=== PATIENT | female | born 1950 | race African-American/Black ===

== ENCOUNTER 2021-02-01 12:27 | Inpatient (IN) | payer OTHER ==
[~2021-02-01] VITALS: Ht 149.9 cm; Wt 99.8 kg
--- NOTE | ~2021-02-01 | EMS ---
[address] [address] EMS Patient Care Report Name: SEAN ALBA Room #: 170-13 ADM IN M.R.#: [id number] Admission: 02/01/21 Attend Phys: Romaine Winter MD Discharge: Date of : 46 Report #: [id number] THIS REPORT FOR: //name// Report Transmitted: 02/01/2021 18:22 EMS Care Summary [place], [place]/[facility] Incident [id number] @ 02/01/2021 11:55 Incident Location [address] [place], [place] [id number] Patient SEAN ALBA Female, 70 Years 1950 Patient Address [address] [id number] Patient History Asthma,Diabetes,Hypertension (HTN),Kidney/Renal Failure,Stroke/CVA,Hyperlipidemia,Chronic Pain, Patient Allergies Penicillin allergy,Sulfa,Azithromycin, Patient Medications Lasix, Hydrocodone, Clonidine, Albuterol, Bentyl, Aspirin, Cymbalta, Insulin, Omeprazole, Coreg, Gabapentin, Fentanyl, Buspar, Xanax, Rosuvastatin, Chief Complaint hyperglycemia Disposition Transported No Lights/[place] Dispatch Reason Sick Person Transported To [address] [address] EMS Patient Care Report Name: SEAN ALBA Room #: 170-13 ADM [facility] [id number] Admission: 02/01/21 Attend Phys: Romanie Winter MD Discharge: Date of : 46 Report #: [id number] pt found seated in chair w/ home health nurse on scene. pt reported to have high BGL readings for the past 2 days. they have had difficulty getting her level to read under 500. home health gave pt 5 units extra of insulin, waited an hour and when reading was still around 500, said he wanted pt to be eval in ER. pt states she only feels "sleepy and thirsty". pt sits in stair chair and out to cot, transport w/o incident. Initial Vitals @12:05P: 81,R: 18,BP: 136/49,Pain: 6/10,GCS: 15,Glucose: 495,CO: 2,SpO2: 97,Revised Trauma: 12, Assessments @12:00MENTAL:No Abnormalities,SKIN:No Abnormalities,HEENT:Head/Face: No Abnormalities,LUNG SOUNDS:ABDOMEN:PELVIS//GI:EXTREMITIES:PULSE:Radial: 2+ Normal,NEURO:Other, Impression Diabetic Hyperglycemia Procedures @12:00ALS AssessmentResponse: Unchanged@12:05StretcherResponse: Unchanged@12:03StairchairResponse: Unchanged Timeline 11:53,Call Received 11:53,Dispatch Notified 11:55,Dispatched 11:55,En Route 11:58,On Scene 11:59,At Patient 12:00,ALS Assessment,Response: Unchanged 12:03,Stairchair,Response: Unchanged 12:05,Stretcher,Response: Unchanged 12:05,BP: 136/49 M,PULSE: 81,RR: 18 R,SPO2: 97 Ox,ETCO2: ,B,PAIN: 6,GCS: 15, 12:07,Depart Scene 12:21,At Destination 12:39,Call Closed Disclaimer v1.1 Copyright 2020 [employer] This EMS Care Summary contains data elements from the applicable legal record (which may be displayed differently). It is designed to provide pertinent information for the following purposes: continuity of care, clinical quality, and state data reporting. The complete legal record is available to ED staff and administrators of the receiving hospital in [employer]'s Patient Tracker. All data [address] [address] EMS Patient Care Report Name: PARTHSEAN Christina Room #: 170-13 ADM IN ..#: [id number] Admission: 02/01/21 Attend Phys: Romaine Winter MD Discharge: Date of : 46 Report #: [id number] is provided "as is."
[2021-02-01 12:29] VITALS: BP 122/53
[2021-02-01 13:51] LABS: HEMATOCRIT 36.1 % (37.0-47.0); HEMOGLOBIN 11.4 gm/dL (12.0-15.0); MCH 25.3 pg (26.0-34.0); MCHC 31.5 g/dL (28.0-37.0); MCV 80.4 fL (80.0-100.0); RBC 4.49 mil/uL (4.20-5.00); RDW 16.5 % (10.5-14.5)
[2021-02-01 14:07] LABS: CALCIUM 8.3 mg/dL (8.5-10.1); CREATININE 0.9 mg/dL (0.6-1.0); POTASSIUM 4.2 mmol/L (3.5-5.1)
[2021-02-01 14:15] LABS: ALBUMIN 2.9 g/dL (3.4-5.0); TOTAL BILIRUBIN 0.3 mg/dL (0.2-1.0); TOTAL PROTEIN 6.5 g/dL (6.4-8.2)
[2021-02-01 18:01] LABS: URINE BILIRUBIN NEGATIVE (Negative); URINE BLOOD NEGATIVE (Negative); URINE CLARITY CLEAR; URINE COLOR YELLOW; URINE GLUCOSE-RANDOM* NEGATIVE (Negative); URINE KETONES NEGATIVE (Negative); URINE LEUKOCYTES-REFLEX NEGATIVE (Negative); URINE NITRITE-REFLEX NEGATIVE (Negative); URINE PROTEIN (DIPSTICK) NEGATIVE (Negative); URINE SPECIFIC GRAVITY <= 1.005 (1.005-1.035); URINE UROBILINOGEN 0.2 E.U./dl (0.2-1.0)
[2021-02-01] MEDS ORDERED: ARICEPT10 M1 PO (19:32)
[2021-02-01] MEDS ORDERED: DESYREL150 MG PO (19:33)
[2021-02-01] MEDS ORDERED: OXYCODONE HCL E10 MG PO (19:33)
[2021-02-01] MEDS ORDERED: TIZANIDINE HCL2 M1 PO (19:34)
[2021-02-01] MEDS ORDERED: HUMALOG100 UNIT/1 SUBQ (19:35)
[2021-02-01] MEDS ORDERED: SEROQUEL 50 MG50 M1 PO (19:35)
[2021-02-01] MEDS ORDERED: CARVEDILOL25 MG PO (19:36)
[2021-02-01] MEDS ORDERED: NORCO5 PO (19:36)
[2021-02-01] MEDS ORDERED: BENTYL10 MG/1 ML IM (19:36)
[2021-02-01] MEDS ORDERED: CLONIDINE HCL0.1 M1 PO (19:37)
[2021-02-01] MEDS ORDERED: FUROSEMIDE 20 M20 MG PO (19:37)
[2021-02-01] MEDS ORDERED: DULOXETINE HCL60 MG PO (19:37)
[2021-02-01] MEDS ORDERED: BUSPIRONE HCL10 MG PO (19:37)
[2021-02-01] MEDS ORDERED: POTASSIUM20 PO (19:38)
[2021-02-01] MEDS ORDERED: LISINOPRIL10 MG PO (19:39)
[2021-02-01] MEDS ORDERED: NEURONTIN300 MG PO (19:39)
[2021-02-01] MEDS ORDERED: OMEPRAZOLE40 MG PO (19:39)
[2021-02-01] MEDS ORDERED: EZALLOR SPRINKL10 MG PO (19:40)
[2021-02-01] MEDS ORDERED: ALPRAZOLAM 0.0.25 M1 PO (19:40)
[2021-02-01] MEDS ORDERED: [UNRECOGNIZED DRUG - OTHER] PO (19:42)
[2021-02-01] MEDS ORDERED: FOSAMAX 70 MG T70 MG PO (19:42)
[2021-02-01] MEDS ORDERED: PLAVIX 75 MG TA75 MG PO (19:42)
[2021-02-01] MEDS ORDERED: LISINOPRIL20 MG PO (19:43)
[2021-02-01] MEDS ORDERED: VITAMIN D210 MCG PO (19:43)
[2021-02-01 20:30] VITALS: BP 159/73
--- NOTE | 2021-02-02 02:32 | NUR ---
PT ADMITTED TO THE UNIT FROM THE ER YESTERDAY WITH C/O HIGH BLOOD SUGAR.PT IS A/O X4.PT IS FROM HOME AND HAS HOMEHEALTH SERVICES.PT IS UP WITH X1 ASSIST TO THE BSC.IV ACCESS ON LT FA SL.PT IS ON ROOM AIR.PT C/O BACK PAIN AND PAIN MANAGED WITH TYLENOL WITH RELIEF.PT IS ACCUCHECK.PT TAKE MEDS WHOLE WITH NO ISSUES.WILL CONTINUE TO MONITOR
[2021-02-02 03:34] LABS: ABSOLUTE NEUTROPHILS 3.5 thou/uL (1.4-8.2); BASOPHILS 0.4 % (0.0-2.0); HEMATOCRIT 35.5 % (37.0-47.0); HEMOGLOBIN 11.6 gm/dL (12.0-15.0); LYMPHOCYTES 21.5 % (24.0-44.0); MCH 25.9 pg (26.0-34.0); MCHC 32.7 g/dL (28.0-37.0); MCV 79.2 fL (80.0-100.0); MONOCYTES 7.6 % (1.0-8.0); PLATELET COUNT 332 thou/uL (150-400); POLYS 67.5 % (36.0-66.0); RBC 4.49 mil/uL (4.20-5.00); RDW 15.9 % (10.5-14.5); WBC 5.1 thou/uL (4.0-11.0)
[2021-02-02 03:54] LABS: CALCIUM 8.2 mg/dL (8.5-10.1); CREATININE 0.7 mg/dL (0.6-1.0); MAGNESIUM 1.9 mg/dL (1.8-2.4)
[2021-02-02 04:42] VITALS: BP 178/87
[2021-02-02 07:04] VITALS: BP 190/105
[2021-02-02 08:45] LABS: ALBUMIN 2.9 g/dL (3.4-5.0); DIRECT BILIRUBIN 0.2 mg/dL (<0.1-0.2); TOTAL BILIRUBIN 0.5 mg/dL (0.2-1.0); TOTAL PROTEIN 6.2 g/dL (6.4-8.2)
[2021-02-02 11:58] LABS: % SATURATION 53 % (20-39); IRON 143 ug/dL (50-170); TIBC 269 ug/dL (250-450)
--- NOTE | 2021-02-02 13:30 | NUR ---
ASSESSMENT: CM REVIEWED CHART AND SPOKE WITH PATIENT AT THE BEDSIDE. PT WAS ADMITTED DUE TO ELEVATED LFTS/POSSIBLE UTI. GI HAS BEEN CONSULTED TO SEE PATIENT. PT REPORTS THAT SHE LIVES AT HOME WITH HER DAUGHTER JOCELYN IN AN APT. PT REPORTS HAVING ABOUT 7 STEPS TO ENTER THE APT AND NOT STEPS ONCE INSIDE. PT REPORTS THAT SHE USES A CANE AND ALSO HAS A WALKER FOR AMBULATION. PT STATES SHE IS IN THE PROCESS OF GETTING A GRAB BAR INSTALLED IN THE SHOWER. PT DOES HAVE A PAST HX OF CVA X2. PT REPORTS THAT SHE IS CURRENTLY IN SERVICES WITH [facility] AND IS HOPEFUL TO RETURN HOME WITH THEIR SERVICES. CM SPOKE WITH RICHARD AT [facility] TO VERIFY AND SHE REPORTS THEY HAVE THE PT ADMITTED UNDER PRIMARY DIAGNOSIS OF ALZHEIMERS. PT REPORTS SHE HAS BEEN TO [place] IN THE PAST. PT IS CURRENTLY ON IV ANBX. CM WILL CONTINUE TO FOLLOW TO ASSIST NEEDED. [facility] STATING THEY CAN ACCEPT HER BACK ONTO SERVICES AT THE TIME OF DISCHARGE. [facility] :[phone] FAX:[phone]. IF PT IS STABLE TO LEAVE OVER THE WEEKEND PLEASE FAX ORDERS TO THE NUMBER LISTED ABOVE FOR [facility] FAX.
[2021-02-02 15:35] VITALS: BP 185/100
[2021-02-02 19:15] VITALS: BP 162/89
[2021-02-02 20:07] LABS: IgG 717 mg/dL (586-1602)
[2021-02-03 02:06] LABS: HAV IgM AB (ANTI-HAV IgM) Negative (Negative); HEPATITIS B SURFACE AG Negative (Negative); HEPATITIS C VIRUS AB <0.1 (0.0-0.9)
[2021-02-03 03:40] VITALS: BP 171/79
--- NOTE | 2021-02-03 05:33 | NUR ---
PT STATES SHE HAVING PAIN. RESTARTED HOME [place]. AM VITALS SHOW PT HAS FEVER. TYLENOL GIVEN. VSS OTHERWISE. PT CAN USE CALL LIGHT.
[2021-02-03 05:37] LABS: ALBUMIN 3.2 g/dL (3.4-5.0); CALCIUM 8.2 mg/dL (8.5-10.1); CREATININE 0.7 mg/dL (0.6-1.0); POTASSIUM 3.7 mmol/L (3.5-5.1); TOTAL BILIRUBIN 0.3 mg/dL (0.2-1.0); TOTAL PROTEIN 6.9 g/dL (6.4-8.2)
[2021-02-03 07:15] VITALS: BP 162/91
--- NOTE | 2021-02-03 13:46 | NUR ---
ASSUMED PT CARE THIS AM. PT HAS BEEN SLEEPING DURING THE SHIFT. PT HAS IV SITE ON R FA. PT IS ON ROOM AIR AND HAS BREATHING TREATMENT PRN. PT IS ACCUCHECK ACHS. PT NO C/O PAIN, NAUSEA AND VOMITING DURING THE SHIFT. PT DAUGHTER CALLED AND INFORMED HER ABOUT VISITING HOURS TODAY. PT TOLERATED MEDICATION AND DIET WELL. PT ON THE BED SLEEPING, BED ON THE LOWEST POSITION, SIDE RAILS UP, CALL LIGHT WITHIN REACH. WILL CONTINUE TO MONITOR PT. FOLLOW POC.
[2021-02-03 15:07] LABS: CERULOPLASMIN 23.7 mg/dL (19.0-39.0)
[2021-02-03 16:20] VITALS: BP 160/82
[2021-02-03 17:07] LABS: ANA INTERPRETATION Negative (Negative)
[2021-02-03 21:12] VITALS: BP 168/83
--- NOTE | 2021-02-04 03:44 | NUR ---
PT TRANSFERRING TO BEDSIDE COMMODE WITH ASSIST AND IS TOLERATING FAIR. DENIES PAIN. RESTING COMFORTABLY. NO NEEDS VOICED. CALL LIGHT WITHIN REACH. FREQUENT OBSERVATION.
[2021-02-04 07:50] VITALS: BP 156/85
[2021-02-04 10:54] LABS: HEMATOCRIT 33.5 % (37.0-47.0); HEMOGLOBIN 10.8 gm/dL (12.0-15.0); MCH 25.3 pg (26.0-34.0); MCHC 32.2 g/dL (28.0-37.0); MCV 78.7 fL (80.0-100.0); PLATELET COUNT 283 thou/uL (150-400); RBC 4.25 mil/uL (4.20-5.00); RDW 16.5 % (10.5-14.5); WBC 2.2 thou/uL (4.0-11.0)
[2021-02-04 11:12] LABS: ALBUMIN 2.6 g/dL (3.4-5.0); ANION GAP 7 mmol/L (7-16); BUN 6 mg/dL (7-18); CALCIUM 7.7 mg/dL (8.5-10.1); CHLORIDE 101 mmol/L (98-107); CO2 28 mmol/L (21-32); DIRECT BILIRUBIN < 0.1 mg/dL (<0.1-0.2); GLUCOSE 319 mg/dL (74-106); MAGNESIUM 1.8 mg/dL (1.8-2.4); PHOSPHORUS 2.9 mg/dL (2.6-4.7); POTASSIUM 3.4 mmol/L (3.5-5.1); SGOT 61 U/L (15-37); SGPT 159 U/L (14-59); SODIUM 136 mmol/L (136-145); TOTAL BILIRUBIN 0.2 mg/dL (0.2-1.0); TOTAL PROTEIN 5.8 g/dL (6.4-8.2)
[2021-02-04 12:49] LABS: ABSOLUTE NEUTROPHILS 1.6 thou/uL (1.4-8.2)
[2021-02-04 12:50] LABS: ANISOCYTOSIS 1+
--- NOTE | 2021-02-04 13:58 | NUR ---
ASSUMED PT CARE THIS AM. PT HAS IV SITE ON R FA. PT IS UP WITH ASSIST X1 WITH WALKER AND GAITBELT. PT IS ON ROOM AIR. PT IS ACCUCHECH ACHS. PT HAS FEVER THIS AM AND GIVEN MEDICATION AND COOL WASH CLOTH. RECHECK TEMP AND NOW AFEBRILE. INFORMED DR ABOUT PT LOW K+. NO C/O OF NAUSEA AND VOMITING DURING THE SHIFT. PT ON THE CHAIR WITH ALARM ON. CALL LIGHT WITHIN REACH. WILL CONTINUE TO MONITOR PT. FOLLOW POC.
[2021-02-04 14:07] LABS: MITOCHONDRIAL ANTIBODY <20.0 Units (0.0-20.0); SMOOTH MUSCLE ANTIBODY 4 Units (0-19)
[2021-02-04 15:08] VITALS: BP 155/135
[2021-02-04 18:53] VITALS: BP 136/75
--- NOTE | 2021-02-05 03:12 | NUR ---
PT TRANSFERRING TO BEDSIDE COMMODE WITH ASSIST X1 AND IS TOLERATING FAIR. DENIES PAIN. RESTING COMFORTABLY. NO NEEDS VOICED. CALL LIGHT WITHIN REACH. FREQUENT OBSERVATION.
[2021-02-05 07:30] VITALS: BP 137/73
--- NOTE | 2021-02-05 11:10 | NUR ---
PATIENT ALERT AND ORINTED X2, ON ROOM AIR, UP WITH ASSIST X1-2 WITH WALKER AND GAIT BELT, TOLERATING DIET WELL, PAIN MEDICATION GIVEN PER MAR, VITALS STABLE, AND AFBRIELE. CALL LIGHT WITH IN REACH, BED/CHAIR ALARM ON, WILL CONTINUE TO MONITOR.
--- NOTE | 2021-02-05 12:28 | NUR ---
LIGHT TECHNICIAN CALLED FOR PT AT 1204 FOR UNRESPONSIVE. PT GIVEN NARCAN PER DR TAYLOR ORDER AT BEDSIDE. PT AROUSEABLE AT THIS TIME. MOVED TO 3 FOR TELE MONITORING.
--- NOTE | 2021-02-05 12:50 | NUR ---
on-going assessment: CM REVIEWED CHART AND SPOKE WITH ATTENDING. PT CONTINUES TO HAVE PERSISTENT FEVERS. ANBX WAS CHANGED. ID WAS CONSULTED TO SEE PATIENT AND THERE IS ALSO A CONSULT FOR UROLOGY FOR POSSIBLE NEED OF CYSTOSCOPY. AWAITING INPUT FROM UROLOGY. PT LIVES AT HOME WITH HER DAUGHTER AND PLANS WERE TO RETURN HOME WITH DAUGHTER AND RESUME SERVICES WITH [facility] ONCE STABLE. CM WILL CONTINUE TO FOLLOW.
--- NOTE | 2021-02-05 13:06 | NUR ---
AID IN ROOM TO POC, PATIENT NOT RESPONSIVE VERBALLY OR STERNAL RUB, RN HEARD AID RN IN ROOM AT 1205, RAPID RESPONSE DONE AT THAT TIME, VITAL SIGNS DONE AND O2 AT 70% ON ROOM AIR, BLOOD PRESSURE 83/38, NARCAN GIVEN PER DR ORDERS, PATIENT ON 2L NASAL CANULA, REPORT GIVEN TO EMILY RN IN CCU, GOING TO ROOM 363, DAUGHTER WILL BE NOTIFIED AGAIN BY RN WHEN PATIENT MOVES TO CCU.
--- NOTE | 2021-02-05 14:53 | EKG ---
[address] [address] ELECTROCARDIOGRAM REPORT Name: YOVANA ALBACLARICE Vasquez Room #: 363-P ADM IN M.R.#: [id number] Admission: 02/01/21 Attend Phys: Romaine Winter MD Discharge: Date of : 46 Report #: [id number] [facility] Test Date: 2021-02-05 Test Time: 12:19:16 Pat Name: SEAN ALBA Department: Room: 363 Gender: F Legal Process Specialist: JEREMIAH : 1950 Requested By: Romaine Winter Order Number: [id number] : Sj Lala Measurements Intervals [place] Rate: 79 P: 39 [place]: 141 QRS: -32 QRSD: 83 T: 34 QT: 396 QTc: 455 Interpretive Statements Sinus rhythm Inferior infarct, old Compared to ECG 11/11/2008 20:48:47 Myocardial infarct finding now present Electronically Signed On 02-05-2021 14:53:32 CDT by Sj Lala [email or web address] <ELECTRONICALLY SIGNED> By: Sj Lala MD, [facility] 02/05/21 1453 1219 1219 Sj Lala MD, FACC /EPI
[2021-02-05 15:11] VITALS: BP 134/99; BP 141/72
[2021-02-05 18:34] LABS: URINE BILIRUBIN NEGATIVE (Negative); URINE BLOOD TRACE (Negative); URINE CLARITY CLEAR; URINE COLOR YELLOW; URINE GLUCOSE-RANDOM* 1+ (Negative); URINE KETONES NEGATIVE (Negative); URINE LEUKOCYTES-REFLEX NEGATIVE (Negative); URINE PROTEIN (DIPSTICK) TRACE (Negative); URINE UROBILINOGEN 0.2 E.U./dl (0.2-1.0)
[2021-02-05 18:39] LABS: URINE NITRITE-REFLEX POSITIVE (Negative)
[2021-02-05 18:45] LABS: SQUAMOUS 0-3 Few /LPF (0-3); URINE WBC-REFLEX 0-5 Rare /HPF (0-5)
[2021-02-05 18:47] LABS: BACTERIA-REFLEX >30 Many /HPF (None Seen); CASTS None Seen /LPF (None Seen); CRYSTALS None Seen /LPF (None Seen); URINE RBC 1-2 Rare /HPF (NONE SEEN)
--- NOTE | 2021-02-05 19:48 | NUR ---
PT WAS TRANSFERED FROM TODAY AT 1500PM, PT IS A&OX3 ( PERSON, TIME AND PLACE), PT'S VS ARE STABLE, PT CAN FOLLOW COMMANDS, PT'S FAMILY STAY AT PT'S BEDSIDE.
[2021-02-05 19:50] VITALS: BP 143/74
--- NOTE | 2021-02-05 22:44 | NUR ---
PT RESTING IN BED, TALKING WITH FAMILY ON PHONE. O2 PER NC. LUNGS DIMINISHED. PT PROVIDED SNACK PER REQUEST. PURWICK INTACT. PT REPORTED GENERALIZED PAIN, PROVIDER CALLED FOR PRN BUT PT ASLEEP ONCE ORDER OBTAINED. PROVIDER NOTIFIED MRSA POSITIVE. BED ALARM ON.
[2021-02-06 02:58] VITALS: BP 131/61
--- NOTE | 2021-02-06 04:15 | NUR ---
TEMP ELEVATED. PT HAD ON SEVERAL BLANKETS. BLANKETS REMOVED PRN PROVIDED.
[2021-02-06 06:15] LABS: ALBUMIN 2.3 g/dL (3.4-5.0); DIRECT BILIRUBIN < 0.1 mg/dL (<0.1-0.2); SGOT 36 U/L (15-37); SGPT 93 U/L (30-65); TOTAL BILIRUBIN 0.1 mg/dL (0.2-1.0); TOTAL PROTEIN 5.8 g/dL (6.4-8.2)
[2021-02-06 07:47] VITALS: BP 145/73
--- NOTE | 2021-02-06 08:11 | HC ---
[facility] [place] [address] CONSULTATION Name: SEAN ALBA Room #: 363-P [facility] IN M.R.#: [id number] Admission: 02/01/21 Attend Phys: Romaine Winter MD Discharge: Date of : 46 Report #: [id number] THIS REPORT FOR: cc: FAM - No family physician/PCP FAM - No family physician/PCP Walter Viera MD ~ DATE OF SERVICE: 02/05/2021 INFECTIOUS DISEASE CONSULTATION DATE OF CONSULTATION: 02/05/2021 ATTENDING PHYSICIAN: Dr. Winter. REASON FOR EVALUATION: Persistent fevers with abdominal pain. HISTORY OF PRESENT ILLNESS: The patient was examined. This is a 70-year-old woman with extensive medical history including diabetes mellitus type 2 that has not been well controlled with marked hyperglycemia on admission, also has known vasculopathy with previous strokes, who was actually discharged from other facility, presented with fatigue, was found to have markedly elevated blood sugars in the 350 range. Also, elevated transhepatic transaminases in several hundreds that was corrected, however, she has intermittent fevers, some of which have been high-grade as recently as yesterday to 102.2. She is not aware of a particular source, although imaging has raised a question of some thickened bladder wall. Initial urinalysis was fairly unremarkable. She was empirically started on therapy with ciprofloxacin and metronidazole for potential enteral type infection. Aztreonam was added to the Cipro. She is sitting up. It is difficult to ascertain some of the details of her history. She does have ongoing pain, which she describes as left lower quadrant, intermittently has some dyspnea it has been somewhat diminished. Imaging thus far including CT as well as abdominal ultrasound has been fairly unrevealing. ALLERGIES: LISTED TO PENICILLIN, SULFA, AZITHROMYCIN. CURRENT MEDICATIONS: Include gabapentin, aztreonam, insulin glargine, lisinopril, cyclobenzaprine, trazodone, dicyclomine, clopidogrel, quetiapine, pantoprazole, carvedilol, insulin lispro, Cipro and enoxaparin. PAST MEDICAL HISTORY: As described above diabetes mellitus, apparently not well controlled, was complicated by vasculopathy, has previous stroke. History of PE, hyperlipidemia, hypertension, anxiety and has diagnosis of dementia and chronic back pain. SOCIAL HISTORY: Nonsmoker. Occasional ethanol in the past. No illicit drug use. [address] [address] CONSULTATION Name: SEAN ALBA Room #: 363-P [facility] IN .#: [id number] Admission: 02/01/21 Attend Phys: Romaine Winter MD Discharge: Date of : 46 Report #: [id number] FAMILY HISTORY: Noncontributory. REVIEW OF SYSTEMS: Otherwise, unremarkable. PHYSICAL EXAMINATION: GENERAL: She appears chronically ill, undernourished. She is soft spoken. She is in mild to moderate distress. She appears to be mildly encephalopathic. VITAL SIGNS: Temperature 99.3, earlier 100.6 over the evening yesterday, 24 hours ago 102.2. Pulse 111, respirations 20, blood pressure 137/73. SKIN: Warm, dry. No rashes. HEENT: Normocephalic. Extraocular muscles intact. NECK: Supple. LUNGS: Diminished breath sounds. Few crackles. HEART: Regular. I do not appreciate a murmur. ABDOMEN: Soft, distended, nontender. GENITOURINARY AND RECTAL: Deferred. LABORATORY DATA: Recent CBC: White count of 2.2, H and H 10.8 and 33.5, platelets of 283. She has lymphocytopenia. Electrolytes: Sodium 136, potassium 3.4, chloride 101, bicarbonate 20, anion gap of 7, BUN and creatinine 6 and 1.0, glucose of 319 fasting. LFTs improved. AST now 61, down from 934; ALT 159, down from high of 468. Albumin of 2.6. Total protein 5.8. Estimated GFR of 66. Ultrasound of the abdomen; nothing acute, postsurgical changes of cholecystectomy, mild hepatic steatohepatitis. Hepatitis serology was otherwise unremarkable. Sed rate of 22. Ferritin of 39. ASSESSMENT AND PLAN: Febrile illness of uncertain etiology associated initially with elevated LFTs, which have continued to improve. Her left lower quadrant pain certainly raises question of acute diverticulitis. At this point, she is not overtly toxic. It sounds entirely clear to me, but it appears as if I had believed blood cultures were collected find those. Continue empiric therapy. We will check additional testing for possible infectious causes, although may well be not the case that incentive spirometry. Continue to monitor usual sources of potential infection including lungs, urinary tract, etc. <ELECTRONICALLY SIGNED> By: Walter Viera MD 02/06/21 0811 1006 [id number] Walter Viera MD /nt
[2021-02-06] MEDS ORDERED: FLAGYL500 M1 PO (10:31)
[2021-02-06] MEDS ORDERED: CIPRO500 M1 PO (10:31)
[2021-02-06 12:32] VITALS: BP 145/73
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
[2021-02-06 15:34] VITALS: BP 120/62
[2021-02-06 17:29] VITALS: BP 120/46
--- NOTE | 2021-02-06 18:43 | NUR ---
RN ASSUMED PT'S CARE AT 0700AM, PT IS A&OX3 ( PERSON , PLACE AND TIME), PT CAN GET UP TO BSC WITH ASSIST, RN HAS CALLED TO REPORT : PT HAS FEVER 102.2F(O), NEW ORDER RECEIVED, COVID TEST IS POSITIVE, RN HAS CALLED HOSPITAL DR : NO DC TODAY, ID DR STARTS TO TREAT COVID, PT'S FEVER HAS IMPROVED BY THIS TIME, PT STARTS COVID ISOLATION, PT'S FAMILY HAS NOTIFIED ABOUT POSITIVE COVID.
[2021-02-06 21:43] VITALS: BP 129/65
[2021-02-07 03:56] VITALS: BP 126/67
--- NOTE | 2021-02-07 06:14 | NUR ---
Pt. oriented to person,place and to some situation. She is forgetful , reoriented.Tolerating room air well with no respiratory distress. Cont. on enhanced precaution , afebrile. Ambulated with assist to bathroom using walker and gaitbelt. External cath in place.
[2021-02-07 06:58] LABS: ABSOLUTE NEUTROPHILS 1.1 thou/uL (1.4-8.2); RDW 16.5 % (10.5-14.5)
[2021-02-07 07:00] LABS: BASOPHILS 0.3 % (0.0-2.0); HEMATOCRIT 35.5 % (37.0-47.0); HEMOGLOBIN 11.6 gm/dL (12.0-15.0); MCH 25.6 pg (26.0-34.0); MCHC 32.6 g/dL (28.0-37.0); MCV 78.6 fL (80.0-100.0); MONOCYTES 8.5 % (1.0-8.0); PLATELET COUNT 225 thou/uL (150-400); POLYS 63.2 % (36.0-66.0); RBC 4.52 mil/uL (4.20-5.00)
[2021-02-07 07:17] LABS: WBC 1.8 thou/uL (4.0-11.0)
[2021-02-07 07:25] LABS: ALBUMIN 2.4 g/dL (3.4-5.0); ANION GAP 8 mmol/L (7-16); BUN 11 mg/dL (7-18); CHLORIDE 104 mmol/L (98-107); CO2 27 mmol/L (21-32); CREATININE 0.8 mg/dL (0.6-1.0); DIRECT BILIRUBIN < 0.1 mg/dL (<0.1-0.2); GLUCOSE 359 mg/dL (74-106); PHOSPHORUS 4.3 mg/dL (2.6-4.7); POTASSIUM 4.2 mmol/L (3.5-5.1); SGOT 29 U/L (15-37); SGPT 75 U/L (14-59); SODIUM 139 mmol/L (136-145); TOTAL BILIRUBIN 0.1 mg/dL (0.2-1.0)
[2021-02-07 07:49] VITALS: BP 144/59
--- NOTE | 2021-02-07 15:20 | NUR ---
BERNARDINO reviewed chart and spoke with nursing and attending physician. Pt was placed in Enhanced Isolation yesterday after having positive COVID test. Pt is afebrile today and on 1L of O2. Pt is on IV steroids and IV lasix. Pt has been started on Remdesivir. BERNARDINO contacted [facility] to provide update and notify of pt's positive COVID test. Gera confirms they are able to accept pt on service when she is discharged. BERNARDINO spoke with pt via phone to discuss discharge plan. Pt is aware and agreeable with plan. BERNARDINO is following to assist as needed with discharge planning.
[2021-02-07 15:44] VITALS: BP 151/60
[2021-02-07 20:25] VITALS: BP 107/48
[2021-02-08 02:30] LABS: HEMOGLOBIN 10.8 gm/dL (12.0-15.0)
[2021-02-08 02:35] LABS: HEMATOCRIT 32.6 % (37.0-47.0); MCH 25.9 pg (26.0-34.0); MCHC 33.2 g/dL (28.0-37.0); MCV 77.9 fL (80.0-100.0); RBC 4.19 mil/uL (4.20-5.00); RDW 16.2 % (10.5-14.5)
[2021-02-08 02:47] LABS: WBC 1.6 thou/uL (4.0-11.0)
[2021-02-08 02:52] LABS: ALBUMIN 2.3 g/dL (3.4-5.0); ANION GAP 8 mmol/L (7-16); BUN 15 mg/dL (7-18); CALCIUM 7.6 mg/dL (8.5-10.1); CHLORIDE 103 mmol/L (98-107); CO2 27 mmol/L (21-32); CREATININE 0.9 mg/dL (0.6-1.0); DIRECT BILIRUBIN < 0.1 mg/dL (<0.1-0.2); GLUCOSE 329 mg/dL (74-106); PHOSPHORUS 2.9 mg/dL (2.5-4.9); POTASSIUM 3.7 mmol/L (3.5-5.1); SGOT 22 U/L (15-37); SGPT 60 U/L (30-65); SODIUM 138 mmol/L (136-145); TOTAL BILIRUBIN 0.1 mg/dL (0.2-1.0); TOTAL PROTEIN 5.9 g/dL (6.4-8.2)
[2021-02-08 04:40] VITALS: BP 110/56
--- NOTE | 2021-02-08 07:20 | NUR ---
Pt. very upset due to [employer]door activities. She requested benadryl to help her calm down and to help her sleep. Scheduled trazodone she stated did not help last night. SPEECH THERAPIST notified and benadryl given. Pt. did not go to sleep till close to 0300. Up in the commode and had loose bm x2 this shift and voided at the same time. External cath placed afterwards per her request. Cont. on enhanced precaution , afebrile. Tolerating room air well with no respiratory distress.
[2021-02-08 07:57] VITALS: BP 151/68
--- NOTE | 2021-02-08 10:00 | NUR ---
Nutrition: Appears pt was to discharge but found to be COVID+. 75-100% intake recent meals. Wt stable from acute. Albumin 2.3. BG 213-375. Meds: dexamethasone, PEG, SSI, lasix. Last BM 02/06. Assess at low nutrition risk at this time.
[2021-02-08 15:42] VITALS: BP 138/66
--- NOTE | 2021-02-08 15:46 | NUR ---
BERNARDINO reviewed chart and spoke with nursing and attending physician. Pt remains in Enhanced Isolation due to COVID. Pt is afebrile and off O2. Pt is on IV meds and completing course of Remdesivir. Discharge home is anticipated over the weekend with HH. BERNARDINO updated Gera with [facility]. BERNARDINO is following to assist as needed with discharge planning.
--- NOTE | 2021-02-08 16:20 | NUR ---
ASSUMED PT CARE AT SHIFT CHANGE, PT IS A&OX3 WITH MILD FORGETFULNESS. PT ABLE TO AMBULATE STANDY ASSIST WITH WALKER, USES BSC AND PUREWICK. CONTINUES LOOSE STOOLS. HEMO/ONC CONSULTED PER DR DRAKE, WBC 1.6. PT ABLE TO SWALLOW PILLS WHOLE WITH APPLESAUCE/YOGURT. PT STATES SHE TAKES EYE DROPS FOR GLAUCOMA. THIS RN ATTEMPTED TO CALL FAMILY WITH NO RESPONSE. THIS RN CALLED PT PHARMACY, NO EYE DROPS FILLED WITH THEM. PAGED DR TAYLOR WITH UPDATE/REQUEST.
[2021-02-08 18:05] LABS: HEMATOCRIT 35.8 % (37.0-47.0); HEMOGLOBIN 11.5 gm/dL (12.0-15.0); MCH 25.4 pg (26.0-34.0); MCHC 32.2 g/dL (28.0-37.0); MCV 78.9 fL (80.0-100.0); PLATELET COUNT 289 thou/uL (150-400); RBC 4.54 mil/uL (4.20-5.00); RDW 16.3 % (10.5-14.5); WBC 2.5 thou/uL (4.0-11.0)
[2021-02-08 20:07] VITALS: BP 146/69
[2021-02-08 20:24] LABS: ABSOLUTE NEUTROPHILS 1.3 thou/uL (1.4-8.2)
[2021-02-08 20:25] LABS: ANISOCYTOSIS 1+
[2021-02-08 20:26] LABS: HYPOCHROMASIA 2+; POLYCHROMASIA 1+
[2021-02-09 03:02] VITALS: BP 149/76
[2021-02-09 03:16] LABS: ALBUMIN 2.4 g/dL (3.4-5.0); ANION GAP 7 mmol/L (7-16); BUN 12 mg/dL (7-18); CALCIUM 7.6 mg/dL (8.5-10.1); CHLORIDE 108 mmol/L (98-107); CO2 29 mmol/L (21-32); CREATININE 0.7 mg/dL (0.6-1.0); DIRECT BILIRUBIN < 0.1 mg/dL (<0.1-0.2); GLUCOSE 88 mg/dL (74-106); PHOSPHORUS 2.7 mg/dL (2.5-4.9); POTASSIUM 3.4 mmol/L (3.5-5.1); SGOT 17 U/L (15-37); SGPT 51 U/L (30-65); SODIUM 144 mmol/L (136-145); TOTAL BILIRUBIN 0.1 mg/dL (0.2-1.0); TOTAL PROTEIN 5.5 g/dL (6.4-8.2)
--- NOTE | 2021-02-09 06:12 | NUR ---
Patient making slow progress towards outcome goals. Forgetful and gets confused at times, high fall risks, fall precautions in place. Oxygenation optimal on room air. Enhanced precautions for COVID. Vital signs and rhythm stable. Tylenol given for back pain with relief.
[2021-02-09 08:25] VITALS: BP 149/76
[2021-02-09] MEDS ORDERED: PREDNISONE 10 M10 MG PO (09:59)
[2021-02-09] MEDS ORDERED: LEVOFLOXACIN500 MG PO (09:59)
--- NOTE | 2021-02-09 13:18 | NUR ---
DISCHARGE NOTE: BERNARDINO reviewed chart and spoke with nursing and attending physician. Pt remains in Enhanced Isolation due to COVID. Pt is medically stable for discharge home today with services. BERNARDINO spoke with pt via phone to discuss discharge plan. Pt and family thought pt would d/c home tomorrow, but are all agreeable with plan to d/c home today. BERNARDINO notified Gera with [facility], who states that the earliest they are able to start pt on service is , 02/13. If they have a cancellation, pt will be soon earlier. Discharge ppwk faxed to [facility] and received confirmation. BERNARDINO notified HH liaison of discharge. BERNARDINO spoke with pt's dtr, Lourdes, via phone to discuss discharge plan. Pt's dtr asked why pt is discharging home today and still being COVID positive. SW explained that medically the physicians feel pt is ready for discharge and education will be sent home with pt/family regarding isolation precautions. Pt's dtr verbalized understanding and is agreeable with d/c plan. Pt's dtr to bring pt's clothes and provide transportation home. Pt's dtr instructed to leave clothes at security and 3W staff will go get pt's clothes. SW updated pt's nurse. Contact info for HH placed in pt's discharge summary. No additional SW needs identified at this time, but is available to assist should needs arise.
--- NOTE | 2021-02-09 15:09 | NUR ---
assumed patient care at 0700. a/o x4 progressing towards poc goals. dc to home.
[2021-02-10 16:06] LABS: HEMOGLOBIN 11.6 g/dL (11.1-15.9)
== END 2021-02-09 15:25 | disposition home health service (06) | DRG 177 ==
LOC: ER 12:27 → 4S 17:51 → EROBS 17:51 → 3W 17:51 → 4S 20:17 → 3W 02-05 14:47
PROVIDERS: Hospitalist; Internal Medicine; Internal Medicine Hematology & Oncology; Nurse Practitioner; Nurse Practitioner Family; Specialist; ADMIT Hospitalist; ATTEND Hospitalist
PROC: XW033E5 Introduction of Remdesivir Anti-infective into Peripheral Vein, Percutaneous Approach, New Technology Group 5 (ICD-10-PCS; principal; 2021-02-06)
DX: U07.1 COVID-19 (principal); J96.90 Respiratory failure, unspecified, unspecified whether with hypoxia or hypercapnia; J12.82 Pneumonia due to coronavirus disease 2019; E43 Unspecified severe protein-calorie malnutrition; N39.0 Urinary tract infection, site not specified; M31.9 Necrotizing vasculopathy, unspecified; F11.20 Opioid dependence, uncomplicated; Z68.41 Body mass index [BMI] 40.0-44.9, adult; K52.9 Noninfective gastroenteritis and colitis, unspecified; A08.8 Other specified intestinal infections; R79.89 Other specified abnormal findings of blood chemistry; F41.9 Anxiety disorder, unspecified; K75.9 Inflammatory liver disease, unspecified; I10 Essential (primary) hypertension; F03.90 Unspecified dementia, unspecified severity, without behavioral disturbance, psychotic disturbance, mood disturbance, and anxiety; E78.5 Hyperlipidemia, unspecified; G89.29 Other chronic pain; M54.9 Dorsalgia, unspecified; E11.65 Type 2 diabetes mellitus with hyperglycemia; E66.9 Obesity, unspecified; R53.81 Other malaise; D50.9 Iron deficiency anemia, unspecified; M81.0 Age-related osteoporosis without current pathological fracture; K59.00 Constipation, unspecified; R74.01 Elevation of levels of liver transaminase levels; I95.9 Hypotension, unspecified; D70.9 Neutropenia, unspecified; Z86.73 Personal history of transient ischemic attack (TIA), and cerebral infarction without residual deficits; Z86.711 Personal history of pulmonary embolism; Z86.718 Personal history of other venous thrombosis and embolism; Z88.1 Allergy status to other antibiotic agents; Z88.0 Allergy status to penicillin; Z88.2 Allergy status to sulfonamides; Z88.8 Allergy status to other drugs, medicaments and biological substances; Z86.010 Personal history of colon polyps
CPT/HCPCS: 10080; 10195; 10879

== ENCOUNTER 2021-03-21 09:16 | Emergency (ER) | payer OTHER ==
[~2021-03-21] VITALS: Ht 149.9 cm; Wt 86.2 kg
--- NOTE | ~2021-03-21 | EMS ---
[address] [address] EMS Patient Care Report Name: SEAN ALBA Room #: PRE [facility]..#: [id number] Admission: Attend Phys: Discharge: Date of : 46 Report #: [id number] THIS REPORT FOR: //name// Report Transmitted: 03/21/2021 09:07 EMS Care Summary [place], [place]/[facility] Incident [id number] @ 03/21/2021 08:41 Incident Location [address] [place], [place] [id number] Patient SEAN ALBA Female, 70 Years 1950 Patient Address [address] [place], [place] [id number] Patient History Asthma,Dementia,Diabetes,Hypertension (HTN),Kidney/Renal Failure,Stroke/CVA,Hyperlipidemia,Chronic Pain, Patient Allergies Penicillin allergy,Sulfa,Azithromycin,Adhesive Tape, Patient Medications Xanax, Hydrocodone, Buspar, Omeprazole, Rosuvastatin, Gabapentin, Insulin, Bentyl, Coreg, Aspirin, Clonidine, Albuterol, Lasix, Cymbalta, Fentanyl, Chief Complaint HALLUCINATIONS Disposition Transported No Lights/[place] Dispatch Reason Psychiatric Problem/Abnormal Behavior/Suicide Attempt Transported To [facility] [address] [place] [address] EMS Patient Care Report Name: SEAN ALBA Room #: PRE Dhiraj#: [id number] Admission: Attend Phys: Discharge: Date of : 46 Report #: [id number] RESPONDED TO PSYCH AT APARTMENT WITH PD ON SCENE. UPON ARRIVAL PT FOUND SITTING ON COFFEE TABLE ALERT AND ORIENTED X4 BUT REPORTS HALLUCINATING FOR THE LAST WEEK. PT HAS BEEN DEALING WITH DEMENTIA FOR THE LAST 4 MONTHS AND BELIEVES IT IS WORSENING. PT DENIES SI OR HI THOUGHTS. PT REPORTS SEEING ALIENS THAT ARE TRYING TO KILL HER. PT ASSISTED TO COT AND SEATBELTS APPLIED. PT VITALS OBTAINED. PT TRANSPORTED TO [facility] DUE TO MENORAH BEING HIGH VOLUME. PT TEAM LIFTED TO BED AND HANDRAILS UP. REPORT GIVEN TO NURSE. Initial Vitals @09:04P: 112,R: 18,BP: 144/84, @09:08P: 102,R: 18,BP: 104/73,Pain: 0/10,GCS: 15,CO: 5,SpO2: 96,Revised Trauma: 12, Assessments @09:00MENTAL:Place Oriented,Person Oriented,Time Oriented,Event Oriented,Hallucinations,SKIN:HEENT:Head/Face: No Abnormalities,Eyes: No Abnormalities,Neck/Airway: No Abnormalities,LUNG SOUNDS:General: No Abnormalities,Left Upper: No Abnormalities,Right Upper: No Abnormalities,Left Lower: No Abnormalities,Right Lower: No Abnormalities,ABDOMEN:General: No Abnormalities,Left Upper: No Abnormalities,Right Upper: No Abnormalities,Left Lower: No Abnormalities,Right Lower: No Abnormalities,PELVIS//GI:No Abnormalities,EXTREMITIES:Left Arm: No Abnormalities,Right Arm: No Abnormalities,Left Leg: No Abnormalities,Right Leg: No Abnormalities,PULSE:NEURO: Impression Behavioral/psychiatric episode Procedures @09:00ALS AssessmentResponse: UnchangedSucceeded Timeline 08:37,Call Received 08:37,Dispatch Notified 08:41,Dispatched 08:43,En Route 08:55,On Scene 08:59,At Patient 09:00,ALS Assessment,Response: UnchangedSucceeded, 09:04,BP: 144/84 M,PULSE: 112,RR: 18 R,SPO2: Ox,ETCO2: ,BG: ,PAIN: ,GCS: , 09:06,Depart Scene 09:08,BP: 104/73 M,PULSE: 102,RR: 18 R,SPO2: 96 Ox,ETCO2: ,BG: ,PAIN: 0,GCS: 15, 09:12,At Destination 09:27,Call Closed [facility] [address] [place] [address] EMS Patient Care Report Name: SEAN ALBA Room #: [facility]..#: [id number] Admission: Attend Phys: Discharge: Date of : 46 Report #: [id number] Disclaimer v1.1 Copyright 2020 [employer] This EMS Care Summary contains data elements from the applicable legal record (which may be displayed differently). It is designed to provide pertinent information for the following purposes: continuity of care, clinical quality, and state data reporting. The complete legal record is available to ED staff and administrators of the receiving hospital in [facility]'s Patient Tracker. All data is provided "as is."
[~2021-03-21 09:16] MED LIST: ALPRAZOLAM 0.0.25 M1 PO; ARICEPT10 M1 PO; BENTYL10 MG/1 ML IM; BUSPIRONE HCL10 MG PO; CARVEDILOL25 MG PO; CIPRO500 M1 PO; CLONIDINE HCL0.1 M1 PO; DESYREL150 MG PO; DULOXETINE HCL60 MG PO; EZALLOR SPRINKL10 MG PO; FLAGYL500 M1 PO; FOSAMAX 70 MG T70 MG PO; FUROSEMIDE 20 M20 MG PO; HUMALOG100 UNIT/1 SUBQ; LEVOFLOXACIN500 MG PO; LISINOPRIL10 MG PO; LISINOPRIL20 MG PO; NEURONTIN300 MG PO; NORCO5 PO; OMEPRAZOLE40 MG PO; OXYCODONE HCL E10 MG PO; PLAVIX 75 MG TA75 MG PO; POTASSIUM20 PO; PREDNISONE 10 M10 MG PO; SEROQUEL 50 MG50 M1 PO; TIZANIDINE HCL2 M1 PO; VITAMIN D210 MCG PO; [UNRECOGNIZED DRUG - OTHER] PO
[2021-03-21 09:59] LABS: HEMATOCRIT 37.5 % (37.0-47.0); HEMOGLOBIN 11.9 gm/dL (12.0-15.0); MCH 25.3 pg (26.0-34.0); MCHC 31.7 g/dL (28.0-37.0); MCV 79.8 fL (80.0-100.0); RBC 4.69 mil/uL (4.20-5.00); RDW 16.2 % (10.5-14.5); WBC 9.9 thou/uL (4.0-11.0)
[2021-03-21 10:01] LABS: URINE BILIRUBIN NEGATIVE (Negative); URINE BLOOD NEGATIVE (Negative); URINE CLARITY CLEAR; URINE COLOR YELLOW; URINE GLUCOSE-RANDOM* 3+ (Negative); URINE KETONES NEGATIVE (Negative); URINE LEUKOCYTES-REFLEX NEGATIVE (Negative); URINE PROTEIN (DIPSTICK) NEGATIVE (Negative); URINE SPECIFIC GRAVITY <= 1.005 (1.005-1.035); URINE UROBILINOGEN 0.2 E.U./dl (0.2-1.0)
[2021-03-21 10:04] LABS: URINE NITRITE-REFLEX POSITIVE (Negative)
[2021-03-21 10:06] LABS: AMP/METHAMP Negative (Negative); BARBITURATES Negative (Negative); BENZODIAZEPINES Negative (Negative); COCAINE Negative (Negative); METHADONE Negative (Negative); OPIATES Negative (Negative); PCP Negative (Negative)
[2021-03-21 10:08] LABS: CREATININE 1.1 mg/dL (0.6-1.0); POTASSIUM 3.8 mmol/L (3.5-5.1)
[2021-03-21 10:12] LABS: CASTS None Seen /LPF (None Seen); SQUAMOUS 0-3 Few /LPF (0-3); URINE RBC 1-2 Rare /HPF (NONE SEEN); URINE WBC-REFLEX 0-5 Rare /HPF (0-5)
[2021-03-21 10:13] LABS: CRYSTALS None Seen /LPF (None Seen)
[2021-03-21 10:14] LABS: ALBUMIN 3.2 g/dL (3.4-5.0); TOTAL BILIRUBIN 0.2 mg/dL (0.2-1.0); TOTAL PROTEIN 6.6 g/dL (6.4-8.2)
[2021-03-21 15:01] VITALS: BP 183/97
--- NOTE | 2021-03-21 15:53 | EKG ---
[address] [address] [facility] [place] [employer] [place] [address] ELECTROCARDIOGRAM REPORT Name: PARTHSEAN L Room #: [facility]#: [id number] Admission: 03/21/21 Attend Phys: Discharge: 03/21/21 Date of : 46 Report #: [id number] [facility] ED Test Date: 2021-03-21 Test Time: 09:23:37 Pat Name: SEAN ALBA Department: Room: Gender: F Sales Representative [employer]: GERRY : 1950 Requested By: Marbella Lindsey Order Number: [id number] MD: Sj Lala Measurements Intervals [place] Rate: 96 P: 43 HI: 157 QRS: -32 QRSD: 84 T: 35 QT: 357 QTc: 452 Interpretive Statements Sinus rhythm Left axis deviation Abnormal R-wave progression, late transition Compared to ECG 02/05/2021 12:19:16 Left-axis deviation now present Myocardial infarct finding no longer present Electronically Signed On 03-21-2021 15:53:10 CDT by Sj Lala [email or web address] <ELECTRONICALLY SIGNED> By: Sj Lala MD, MERGED WITH [facility] 03/21/21 1553 2 2 Sj Lala MD, [facility]GED WITH [facility] /EPI
== END 2021-03-21 15:05 | disposition admitted as inpatient to this hospital (09) ==
LOC: ER 09:16
PROVIDERS: Student in an Organized Health Care Education/Training Program
DX: R44.2 Other hallucinations (principal); Z20.822 Contact with and (suspected) exposure to COVID-19; F41.9 Anxiety disorder, unspecified; I10 Essential (primary) hypertension; E78.5 Hyperlipidemia, unspecified; Z79.899 Other long term (current) drug therapy; Z79.1 Long term (current) use of non-steroidal anti-inflammatories (NSAID); Z79.4 Long term (current) use of insulin; Z88.0 Allergy status to penicillin; Z88.1 Allergy status to other antibiotic agents; Z88.2 Allergy status to sulfonamides; Z88.8 Allergy status to other drugs, medicaments and biological substances

== ENCOUNTER 2021-03-21 14:30 | Inpatient (IN) | payer OTHER ==
[~2021-03-21] VITALS: Ht 152.4 cm; Wt 94.3 kg
--- NOTE | ~2021-03-21 | D ---
[facility] [place] [address] DISCHARGE SUMMARY Name: SEAN ALBA Room #: [facility] M.R.#: [id number] Admission: 03/21/21 Attend Phys: Romaine Pino DO Discharge: 03/27/21 Date of : 46 Report #: [id number] THIS REPORT FOR: cc: FAM - Family physician unknown FAM - Family physician unknown Romaine Pino DO ~ DATE OF SERVICE: 03/27/2021 INPATIENT PSYCHIATRIC DISCHARGE SUMMARY ATTENDING PSYCHIATRIST ON ADMISSION: Romaine Pino D.O. ATTENDING PSYCHIATRIST ON DISCHARGE: Earline Capellan M.D. CANE WEIGHER AT TIME OF DISCHARGE: Jason Aguilar M.D. DISCHARGE DIAGNOSIS: Major neurocognitive disorder, unspecified etiology with behavioral disturbance, improved. ADDITIONAL DIAGNOSES: Hallucinations; psychosis, resolved; hypertension; diabetes mellitus type 2, optimally controlled; loose stools; coronary artery disease; history of chronic pancreatitis, on Creon and hyperlipidemia. The patient is discharging to her daughter's home who lives with her granddaughter and provides 24-hour care. The patient's aftercare arrangements as best I can tell are PCP, Dr. Castellanos 2020, psychiatry clinic and Dr. Earline Capellan 05/10/2021 at 1330. The patient's daughter believes she was counseled on the fact the patient cannot be left home alone and agreed to abide by that. DISCHARGE DIET: Diabetic 1800 calorie, also low cholesterol. She uses a cane to ambulate, requires prompting and some distance supervision for her ADLs. LABORATORY DATA: Hematology this admission, white count 8.2, H and H 7.6 and 36.9, platelet count 271. Chemistries this admission, sodium 139, potassium 3.9, chloride 104, bicarbonate 27, anion gap 8, BUN 12, creatinine 1.0, estimated GFR 66. A1c 11.1, which is uncontrolled that is an estimated average glucose 272, calcium 9.1, phosphorus 2.7, magnesium slightly low at 1.6. Other laboratories this admission: Total bilirubin 0.2, AST 14, ALT 31, alkaline phosphatase 81. Triglycerides 135, total cholesterol 144, LDL 63, HDL 54. Lipase is 154. B12 level normal at 892. Vitamin D is essentially normal at 38.5, folate slightly low at 5.9. DISCHARGE MEDICATIONS: Donepezil 5 mg oral daily for cognitive enhancement; carvedilol 25 mg oral twice daily for hypertension; buspirone 10 mg oral twice daily for anxiety; duloxetine 60 mg oral daily for history of depression; [address] [address] DISCHARGE SUMMARY Name: SEAN ALBA Room #: [facility] ..#: [id number] Admission: 03/21/21 Attend Phys: Romaine Pino DO Discharge: 03/27/21 Date of : 46 Report #: [id number] furosemide 20 mg oral daily for hypertension; potassium 10 mEq oral daily for supplementation; Plavix 75 mg oral daily for anticoagulation; ergocalciferol 10 mcg oral daily for supplementation; atorvastatin 10 mg oral daily for hyperlipidemia; lisinopril 20 mg oral daily for renal protection and hypertension; hydrocodone/acetaminophen 5/325 q.6 hours p.r.n. for breakthrough severe pain, #20; gabapentin 300 mg oral 3 times a day for pain, certainly neuritic component of her pain; trazodone 100 mg oral daily at bedtime that is scheduled at this point #30 given; risperidone 1 mg oral daily at 1700 for psychosis; famotidine tartrate ophthalmic twice daily 5 mL drops one drop each eye for glaucoma; Pancreaze 10,500 units 1 capsule oral with meals for enzyme replacement; Protonix 40 mg oral daily for GERD and she takes Victoza at home 0.6 mg subQ and I believe that is daily. REASON FOR ADMISSION: Back around on 03/21 was a 70-year-old black female living with her granddaughter, brought in by EMS with 2-month history of intermittent worsening auditory and visual hallucinations. The patient believes that an alien was out to get her. She had illusions of presence, was concerned. She was seeing someone who is trying to kill her. HOSPITAL COURSE: The patient was admitted to the geriatric-psychiatry unit. The patient's situation is one where the dementia has already been diagnosed and perhaps the attention she is getting is not optimal. I did think the benefits outweighs the antipsychotic. I elected to utilize risperidone once a day 1 mg dosing with some improvement, though I think this is demanding to the daughter, she did want to try to keep her home instead of memory care placement, which after her being counseled on the requirements , the daughter agreed to check that on. Would also recommend 1 mg a day folate supplementation. Dr. Capellan saw her on the day of discharge. MENTAL STATUS EXAMINATION: VITAL SIGNS: Temperature was 36.7, pulse 83, respirations 18, BP 146/61. BMI is 40.6, weight 94.347 kilos. Certainly improved diet and weight loss would be desirable given her cardiovascular and neurocognitive diseases in this. PROGNOSIS: Guarded. By: [id number] Romaine Pino DO /nt
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
[2021-03-21 17:21] VITALS: BP 151/85
[2021-03-21 19:35] VITALS: BP 157/86
[2021-03-21 19:57] LABS: CHOLESTEROL 144 mg/dL (<200); HDL CHOLESTEROL 54 mg/dL (>40); LDL CHOLESTEROL 63 mg/dL (<100); SERUM ASSESSMENT Clear; TC:HDL 2.7 Ratio (Not establshd); TRIGLYCERIDE 135 mg/dL (<150); VLDL 27 mg/dL (<40)
[2021-03-21 20:04] VITALS: BP 184/95
[2021-03-22 10:14] VITALS: BP 117/67
--- NOTE | 2021-03-22 12:09 | NUR ---
New admit to [facility]: Pt admitted with visual and auditory hallucinations. Hx dementia, HTN, CVA, IBS, DMII. Current UTI, on ABT. Noted with chronic pancreatitis on Creon. SSI, lasix, statin, protonix noted. On CCHO 1500 diet with 100% intake reported at bkft this AM. Extreme class III obesity noted with BMI 41. Not appropriate for nutrition education r/t weight management d/t dx mentation. Pt lived with daughter APPLICATION ADMINISTRATOR, if plan is to return home, family nutrition education r/t weight management may be beneficial. Low nutrition risk at this time.
--- NOTE | 2021-03-22 15:29 | NUR ---
03-22-2021--8:00 AM-Chart reviewed for patient information. Resident seen--Resident was in the day room and we went to a secluded area so we could talk. Information gathered from just the patient. She was alert and oriented x's 4 and appeared embarrassed, as displayed her looking down and hr voice was more quiet and she told me "It was so real". We discussed her fears. (Daughter stated she thought patient had "sundowners" as around 5:00 PM each evening the patient has been agitated and restless and wanting to go somewhere each evening. She also stated the omly place the patient could see the aliens was in her own room.) Patient and I made a call to her daughter Chiara and the daughter (who is not currently the DPOA) is having the paperwork done for her mother to sign to make her the DPOA. Patient is agreeable to this also. Both answered clarifing questions for the completion of the psychosocial assessment.
--- NOTE | 2021-03-22 18:34 | NUR ---
Assumed pt care at 0700. pt was in her room sleeping. Alert and oriented x4. Assessments completed, vss. LUNGS CLEAR, ACTIVE BOWEL SOUNDS. DeNIES SI/HI, C/O PAIN. Pain meds administered as ordered. No sign of acute distress noted upon assessments. Took meds whole, no difficulty noted. Calm and cooperative with care. Makes need known to staff. pt was incontinent x1 this shift. Ambulates with a walker. At this time pt is in the day room. Will continue to monitor.
[2021-03-22 19:53] VITALS: BP 171/89
[2021-03-22 20:15] VITALS: BP 171/89
[2021-03-23 00:06] LABS: GLYCOHEMOGLOBIN (HGB A1C) 11.1 % (4.8-5.6)
--- NOTE | 2021-03-23 03:01 | NUR ---
PATIENT CARE WAS RESUMED AT 1900. SHE IS ALERT AND ORIENTED. MODERATE ASSIST WITH CARE. SHE AMBULATES WITH WALKER. ABLE TO VERBALISE HER NEEDS. LUNGS ARE CLEAR BS ACTIVE X4 QUADS. SHE TOOK HER MEDS AND SHE RETIRED TO HER ROOM.BED IS LOW AND LOCKED. SHE HAS A YELLOW SOCKS ON. SHE DENIES PAINS,SI/AVH, HI. NO BEHAVOIR NOTED AT THIS TIME. CONTINUE CARE.
[2021-03-23 10:32] VITALS: BP 118/69
--- NOTE | 2021-03-23 17:02 | NUR ---
VISIBLE IN DAYROOM MAJORITY OF SHIFT-WILL ATTEND SCHEDULED GROUPS/ACTIVITIES WITH PROMPTING-DID INTERACT WITH MALE PEER SITTING NEXT TO HER IN DAYROOM. REPORTING LOW /MID BACK PAIN RATED A 7 ON 1-10 SCALE-REPORTS NO RELIEF FROM TYLENOL ADMINISTEREDA 0700-NORCO 5/325 PO PRN AT 0830 AND REPEATED AT 1630 PER PY REQUEST-DOES REPORT DECREASE UN PAIN RATING TO A 3 AFTER ADMINISTRATION. ALERT AND ORIENTED X3- SLIGHTLY CONSTRICTED AFFECT-DENIES SI/SH/HI. NO NOTED OR REPORTED PSYCHOSIS. GAIT STEADY WITHOUT ASSISTIVE DEVICE.
[2021-03-23 19:55] VITALS: BP 138/68
[2021-03-23 20:37] VITALS: BP 138/68
--- NOTE | 2021-03-24 03:01 | NUR ---
PATIENT CARE WAS RESUMED AT 1900. SHE IS ALERT AND ORIENTED.MODERATE ASSIST WITH CARE. ABLE TO VERBALIZE HER CONCERNS. SHE DENIES SI/AVH/HI. LUNGS ARE CLEAR BS ACTIVE X4 QUAD. SHE AMBULATES WITH WALKER.NO CONCERN NOTED AT THIS TIME. BED IS LOW AND LOCKED. SHE IS CONTINENT OF BOWEL AND BLADDER. Q 12MINUTES CHECK IS ONGOING, SHE OS A NONE SKID SOCKS ON. CONTINUE CARE
[2021-03-24 10:11] VITALS: BP 136/79
--- NOTE | 2021-03-24 10:49 | NUR ---
PATIENT CARE ASSUMED AT 0700 - WAS SLEEPING WHEN ARRIVING ON UNIT. APPROACHED WHEN OUT IN [place]ING [place] FOR BREAKFAST. PLEASANT AND AGREEABLE. SON CALLED DURING BREAKFAST TO SPEAK TO HER - WANTED TO READ SCRIPTURE TO HER - TOOK CALL AND WAS VERY PLEASED SHE HAD SPOKE TO SON. COMPLIANT WITH MEDICATIONS - BLOOD SUGAR WAS 236 AND REQUIRED 10 UNITS INSULIN THIS MORNING. PATIENT STATED HAD GOOD DAY. ADVISED NURSE HIP PAIN AND GIVEN HYDROCODONE FOR DISCOMFORT. AFTERWARDS STATED PAIN SUBSIDED QUITE A BIT AND IT WAS EFFECTIVE. PATIENT AMBULATES INDEPENDENTLY - ALERT AND ORIENTED X 4 - MAKES NEEDS KNOWN READILY. TOLLETS SELF INDEPENDLY.
[2021-03-24 19:36] VITALS: BP 161/88
[2021-03-24 19:56] VITALS: BP 161/88
--- NOTE | 2021-03-24 23:34 | NUR ---
Assumed care on 03/24/21 @ 1900, in her room at start of shift, cooperated with assessment, HRRR, Lung sounds CTA bilat, ABD N x4Q over a soft round abdomen. Reports BM today, chronic lower back pain of 7/10, Hydrocodone/APAP 5/325 given for pain and follow up is noted to be sleeping. A&Ox3-4, pleasant affect noted. Will continue to monitor for safety and comfort as per unit protocol.
--- NOTE | 2021-03-25 06:23 | H ---
[facility] [place] [address] HISTORY AND PHYSICAL Name: SEAN ALBA Room #: 527B-B ADM IN M.R.#: [id number] Admission: 03/21/21 Attend Phys: Romaine Pino DO Discharge: Date of : 46 Report #: [id number] THIS REPORT FOR: cc: FAM - Family physician unknown FAM - Family physician unknown Romaine Pino DO ~ DATE OF SERVICE: 03/22/2021 INPATIENT PSYCHIATRIC EVALUATION DATE OF EVALUATION: 03/22/2021 ATTENDING PSYCHIATRIST: Romaine Pino DO MARKETING SYSTEMS ANALYST: Jason Aguilar MD REASON FOR ADMISSION: Hallucinations. SOURCES OF INFORMATION: Interview with the patient, telephone conversation with her daughterChiara, chart review. HISTORY OF PRESENT ILLNESS: This is a 70-year-old black female living with her daughter and the daughter's 12-year-old daughter, meaning her granddaughter, brought by EMS with a 2-month history of intermittent auditory and visual hallucinations. The patient states it occurs most frequently in the evenings and overnight. She states she lives with her daughter and they can occur while the daughter is there or while she is alone. Frequently, it will happen after she goes to bed and wakes up and then cannot fall back asleep. She hears and sees people telling her that they are going to kill her. She fears for herself, she told the ER. She denies any SI or HI. No chest pain or shortness of breath. No cough or fevers. The patient has not been vaccinated against COVID-19, but did have the COVID coronavirus 2 months ago and reports that they wanted to wait longer until she would be vaccinated. In the ER, she denied dysuria or increased urinary frequency, no pain other than chronic arthritis. Her daughter reports increasing confusion. The patient has been afraid and he has been seeing aliens intermittently over the last few months. On telephone conversation, her daughter reported that she was knocking on neighbor's door and stated that she saw aliens. PAST MEDICAL HISTORY: Includes "drug-induced hyperglycemia," chronic back pain, cellulitis, recurrent UTIs, syncope, renal insufficiency, history of cerebrovascular accident, hyperlipidemia, pulmonary embolism, irritable bowel syndrome, diabetes mellitus. PSYCHIATRIC HISTORY: Includes dementia, anxiety. [address] [address] HISTORY AND PHYSICAL Name: SEAN ALBA Christina Room #: 527B-B [facility] IN [facility].#: [id number] Admission: 03/21/21 Attend Phys: Romaine Pino DO Discharge: Date of : 46 Report #: [id number] PAST SURGICAL HISTORY: Includes a Lfor-en-Y gastric bypass approximately 20 years ago HOME MEDICATIONS: The patient was prescribed levofloxacin in January and prednisone in January of this year. Otherwise, her home medication list includes donepezil 5 mg oral daily, trazodone 50 mg oral daily, tizanidine 2 mg oral daily, insulin Lispro sliding scale, dicyclomine, carvedilol 25 mg p.o. b.i.d., buspirone 10 mg p.o. b.i.d., clonidine 0.1 mg p.o. b.i.d., duloxetine 60 mg oral daily, furosemide 1 tab oral daily, potassium chloride 20 mEq oral daily, gabapentin 300 mg oral daily, omeprazole, rosuvastatin 10 mg oral daily, pancreatic enzyme replacement noted, alendronate weekly, Plavix daily, ergocalciferol 10 mcg daily. ALLERGIES: ADHESIVE TAPE, AZITHROMYCIN, PENICILLIN, SULFA ALLERGIES, AND PENICILLIN ALLERGY WAS DESCRIBED RASHES AND HIVES. SOCIAL HISTORY: Nonspecific alcohol use. Denies smoking. Denies recreational drug use. REVIEW OF SYSTEMS: From the ER: GENERAL: No fever, no chills. EYES: No vision change. No discharge. HEENT: No sinus drainage. No sore throat, no ear pain. RESPIRATORY: No cough, no shortness of breath. CARDIOVASCULAR: No chest pain, no palpitations. No edema. ABDOMEN: No abdominal pain. No nausea, no vomiting, no diarrhea. GENITOURINARY: No dysuria, no increased urinary frequency. MUSCULOSKELETAL: No back pain, no extremity pain. SKIN: No rash. NEUROLOGIC: No headache, no focal weakness. PSYCHIATRIC: Auditory and visual hallucinations. Denied SI or HI. Weight 92.618 kilos. There was an EKG done in the ER, ventricular rate 96, ME interval 157 milliseconds, QT interval 357 milliseconds, QTc 452 milliseconds. The machine read it as left axis deviation, otherwise grossly normal EKG. LABORATORY DATA: From the ER were quite a few. On the hematology: Hemoglobin and hematocrit 11.9 and 37.5, white count 9.9, platelet count 206. Chemistry: Sodium 137, potassium 3.9, chloride 101, bicarbonate 25, anion gap 11, BUN 12, creatinine 1.1. Glucose initially 442, coming down to 223 today. Calcium slightly low at 8.0. Total bilirubin 0.2. AST 14, ALT 31, alkaline phosphatase 81. Total protein 6.6, albumin 3.2. Triglycerides 135, cholesterol 144, LDL 63, HDL 54. Urinalysis showed positive nitrites, 10-30 bacteria, 3+ [address] [address] HISTORY AND PHYSICAL Name: SEAN ALBA Room #: 527B-B ADM IN M.R.#: [id number] Admission: 03/21/21 Attend Phys: Romaine Pino DO Discharge: Date of : 46 Report #: [id number] glucose. Toxicology was negative. Alcohol level was negative as well. COVID-19 Anaya test was negative. Also, I wanted to include a brief look back of her discharge summary from January. Evidently, she was admitted for fever, abdominal pain, UTI and diabetes, was found to have elevated transaminases. CT abdomen and pelvis was negative. Generalized abdominal pain with associated diarrhea. She was given Cipro and Flagyl. She was sent home with home health. The patient reportedly completed 9th grade level in high school. Apparently, the hallucinations began after returning home from the hospital for COVID. She describes them as human-like. The aliens demand to live in her house and affected on her via electric shock. Prior to admission, the aliens had written on her pillow that they were going to kill her, so she "got up and left the house." She also has seen visions of rats. She has hallucinations of both visual and auditory. She hears the aliens talking to her. She denied depressed mood or anhedonia. Denied SI or HI. She states she has a history of anxiety. She feels her current level of anxiety is appropriate for the circumstances. SOCIAL HISTORY: Grew up in several cities, [place], [place], [place]. She her when 14 years old, so I think 9th grade level of education. They were for 47 years until his . They have 5 children. 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 States she loves helping others and caring for people. She has experienced significant loss in her life. Her son at age 2323 years old due to unknown causes and then her in 2010. She reports that the loss of her son was traumatic. She endorses some symptoms of avoidance and hyperarousal; however, these symptoms do not affect her daily functioning or sleep. The patient lives with her daughter who is 52 years old and granddaughter who is 12 years old. The daughter is her DPOA. She endorses exercising and taking walks. 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 She denies nicotine, alcohol and illegal drug use. She, for psychiatric providers, had seen a psychiatrist in the past, but currently her PCP is prescribing medications. She is on BuSpar and Cymbalta. FAMILY HISTORY OF PSYCHIATRIC DISORDERS: Brother with possible schizophrenia. FAMILY MEDICAL HISTORY: Including Alzheimer's in her mother, diabetes in the family, back problems, irritable bowel symptoms, osteoarthritis. [facility] [address] [place] [address] HISTORY AND PHYSICAL Name: PARTHSEAN Christina Room #: 527B-B ADM IN M.R.#: [id number] Admission: 03/21/21 Attend Phys: Romaine Pino DO Discharge: Date of : 46 Report #: [id number] SURGERIES: She has had a hysterectomy, knee replacement x2, back surgery x1 with another scheduled in May, glaucoma and gallbladder. She rates her pain 8/10, coming from her back. PHYSICAL EXAMINATION: GENERAL: Obese, -St Lucian female, appearing at least stated age in yellow full shirt, seated in a chair. MENTAL STATUS EXAMINATION: A well-developed female, adequate grooming and hygiene. Normal gait. No abnormal involuntary movements. She was cooperative with the interview. Oriented to person, time, place, and situation. Speech is normal in rate, volume and rhythm. Thought process is linear, goal directed. She reports auditory and visual hallucinations, though does not appear bothered by them. Denies SI or HI. Affect is congruent with some anxiety. Also described her mood is good. Attention and concentration adequate. [facility] mental status examination was performed, she scored 18/30. Deficits were 0/4 for clock drawing, 6/8 for paragraph recall, 0/2 for reverse digit span, 4/5 on 5-item recall, 2/3 for verbal fluency, 1/3 for making change question. FORMULATION: A 70-year-old black female admitted for increasing psychosis, bizarre behavior. DIAGNOSES: At this time: 1. Unspecified psychosis. 2. Major neurocognitive disorder, likely due to vascular, but cannot exclude an Alzheimer's component with behavioral disturbance, unspecified anxiety. MEDICAL COMORBIDITIES: The patient is diagnosed with as follows: Hypertension, diabetes mellitus type 2, obesity, coronary artery disease, chronic pancreatitis, hyperlipidemia. Medications, the patient is currently in a hospital. I just started her on ciprofloxacin 250 mg p.o. b.i.d. x3 days for an E. coli UTI, sensitivities pending. For auditory and visual hallucinations, I started her today on 4 mg a day of risperidone at 1700. She is on gabapentin 300 mg oral 3 times a day for neuropathic pain, scheduled. I started her on 5/325 hydrocodone/APAP p.o. q. 6 hours for breakthrough pain, has gotten one dose so far this morning; potassium chloride 20 mEq oral daily for supplementation; lisinopril 20 mg oral daily for hypertension; furosemide 20 mg oral daily for hypertension; duloxetine 60 mg oral daily for depression; donepezil 5 mg oral daily for Alzheimer disease; and Plavix 75 mg oral daily for coronary artery disease; cholecalciferol 5000 international units oral daily for supplementation; atorvastatin 10 mg oral daily for hyperlipidemia; pantoprazole 40 mg oral daily; trazodone 50 mg oral [facility] [address] [place] [address] HISTORY AND PHYSICAL Name: PARTHSEAN Christina Room #: 527B-B [facility] IN ..#: [id number] Admission: 03/21/21 Attend Phys: Romaine Pino DO Discharge: Date of : 46 Report #: [id number] daily, trazodone is for sleep; buspirone 10 mg oral b.i.d. for anxiety; carvedilol 25 mg p.o. b.i.d. before meals. She is on creon pancreatic enzyme replacement 1 capsule with meals. She is on moderate intensity insulin sliding scale. We will adjust doses further with regard to her insulin over a few days. PLAN: The patient is admitted voluntarily to [facility] at [facility]. Hospitalist was consulted. Started the patient on once a day antipsychotic given some of her risk factors and have a blood pressure noted in the mornings. I have also started her on ciprofloxacin for treatment of gram-negative rods, UTI, in her urine. According to the daughter, goal is to return her to home. The patient has a history of dementia and will likely need 24/7 care. Time spent on this case with greater than 50% including review of records and coordination of care was greater than 60 minutes. STRENGTHS: She is insured, supportive family. WEAKNESSES: Multiple medical morbidities, advancing age. <ELECTRONICALLY SIGNED> By: Romaine Pino DO 03/25/21 0623 [id number] Romaine Pino DO /nt
[2021-03-25 07:10] VITALS: BP 148/86
[2021-03-25 10:26] VITALS: BP 148/86
--- NOTE | 2021-03-25 11:08 | NUR ---
RESUMMED CARE FROM OVERNIGHT SHIFT THIS AM, PATIENT ALERT ORIENTED TIMES 4. SITTING IN DAY ROOM TALKING WITH ANOTHER PATIENT, PATIENT DENIES SI/HI/AH/VH AT PRESENT. PATIENT STATES SHE HAS A LITTLE ANXIETY NO DEPRESSION SHE WAS IN SOME PAIN THIS AM, I GAVE PATIENT HYDROCODONE 5 MG SHE RATES HER PAIN AT A 7; PATIENTS ABDOMEN SOFT BOWEL SOUNDS PRESENT. PATIENTS LUNGS CLEAR PATIENT PARTICIPATES IN GROUPS. PATIENT HAS NOT DISPLAYED ANY BEHAVIORS WILL CONTINUE TO MONITOR PATIENT FOR SAFETY AND BEHAVIORS.
[2021-03-25 19:30] VITALS: BP 155/79
--- NOTE | 2021-03-25 22:56 | NUR ---
Assumed care on 03/25/21 @ 1900, A&Ox4, c/o diarrhea, last immodium taken @ 1500, Chronic back and hip pain reported, Hydrocodone/APAP 5 provided with HS meds @ 2100, immodium provided @ 2200 for another diarrhea episode. HRRR, Lung sounds CTA, ABD sounds hyperactive. Ate 100% of evening snack. Socialized with peers at a table. Retired to bed @ , bed in low position, will continue to monitor for safety and comfort as per unit protocol.
[2021-03-26 09:43] VITALS: BP 166/74
--- NOTE | 2021-03-26 14:17 | NUR ---
Assumed pt care at 0700. Alert and oriented x4. Calm and cooperative with care. Lungs clear, active bowel sound. Took meds whole with thin liquid, no difficulty noted. Denies si/hi, C/O pain. Hydrocodone administered as ordered. Ambulates with a walker. Pt reported having loose stools. Loperamide administered as ordered. Pt was assisted with a shower this shift. AT this time pt is in the day room socializing. Will continue to monitor.
[2021-03-26 19:33] LABS: HEMATOCRIT 36.9 % (37.0-47.0); HEMOGLOBIN 11.6 gm/dL (12.0-15.0); MCH 25.4 pg (26.0-34.0); MCHC 31.4 g/dL (28.0-37.0); MCV 80.8 fL (80.0-100.0); RBC 4.57 mil/uL (4.20-5.00); RDW 16.4 % (10.5-14.5); WBC 8.2 thou/uL (4.0-11.0)
[2021-03-26 19:44] LABS: CALCIUM 9.1 mg/dL (8.5-10.1); MAGNESIUM 1.6 mg/dL (1.8-2.4); POTASSIUM 3.8 mmol/L (3.5-5.1)
[2021-03-26 19:50] VITALS: BP 137/79
[2021-03-26 19:55] VITALS: BP 137/79
[2021-03-26 20:15] LABS: FOLIC ACID 5.9 ng/mL (8.6-58.9)
--- NOTE | 2021-03-26 20:23 | NUR ---
Assumed care on 03/26/21 @ 1900, A&Ox4 Seated in the day room at a table socializing with a peer. Cooperated with assessment, HRRR S1S2 noted, Breath sounds CTA bilat, ABD N x 4Q. Reports diarrhea and requests immodium. Reports pain in back and hip and requests hydrocodone for 8/10 pain level. Ambulates with a walker, continent of B&B. Will continue to monitor for safety and comfort as per unit protocol.
--- NOTE | 2021-03-27 08:35 | NUR ---
03-27-2021--7:45 AM--Patient was seen on unit coming out of her room. She was friendly and cooperative and states she had a good night. She appeared to be wearing a hospital gown and stated her daughter hadn't brought her any clothes this weekend. She went to eat breakfast in the day room.
[2021-03-27 09:21] VITALS: BP 146/61
[2021-03-27] MEDS ORDERED: GLUCOTROL5 MG PO (16:26)
[2021-03-27] MEDS ORDERED: NEURONTIN 300M300 M2 PO (16:26)
[2021-03-27] MEDS ORDERED: PROTONIX 20 MG20 M1 PO (16:26)
[2021-03-27] MEDS ORDERED: RISPERDAL 1 MG T1 MG PO (16:26)
[2021-03-27] MEDS ORDERED: PANCREAZE DR 11 EAC2 PO (16:26)
[2021-03-27] MEDS ORDERED: TRAZODONE HCL100 MG PO (16:26)
[2021-03-27] MEDS ORDERED: ATORVASTATIN CA10 MG PO (16:26)
[2021-03-27] MEDS ORDERED: METFORMIN HCL500 MG PO (16:26)
[2021-03-27] MEDS ORDERED: LISINOPRIL20 MG PO (16:26)
[2021-03-27] MEDS ORDERED: HYDROCODON-ACE1 EAC7 PO (16:26)
[2021-03-27] MEDS ORDERED: BRIMONIDINE TART5 ML OPHTHALMIC (16:26)
[2021-03-27] MEDS ORDERED: VICTOZA 3-0.6 MG/0.1 SUBQ (16:29)
[2021-03-27 16:31] VITALS: BP 146/61
[2021-03-27 16:58] VITALS: BP 146/56
--- NOTE | 2021-03-27 17:18 | NUR ---
BERNARDINO was able to speak with Pt and Pt's daughter Chiara about discharge. Chiara stated she would be able to pick the Pt up today @ 1730. BERNARDINO voiced concerns about the Pt being left at home alone. Chiara assured the Pt will not be left unsupervised and that she has arranged the Pt to be with a personal attendant during the time Chiara will be having knee surgery. BERNARDINO informed Pt and Chiara about follow up appointments. This information was also put in the discharge. Pt will d/c home 03/27/2021. Pt has the following follow up appointments Dr. Aiden Kwan-PCP, 04/02/2021 Dr. Earline Capellan- Psychiatry, 05/10/2021 @ 1846
--- NOTE | 2021-03-27 18:29 | NUR ---
Assumed pt care at 0700. Pt was alert and oriented x4. Assessments completed, vss. lungs clear, active bowel sounds. Denies si/hi, c/o pain. Took meds whole, no difficulty noted. AMBULATES WITH A WALKER. CALM AND COOPERATIVE WITH CARE. MAKES NEEDS KNOWN TO STAFF. CONTINENT OF BOWEL AND BLADDER THIS SHIFT. At this time pt is in the day room. pt is schedule to D/C home AT 5PM. PT daughter call to reschedule for 8pm 03/27/21. Will continue to monitor.
--- NOTE | 2021-03-27 18:56 | NUR ---
Pt was d/c home at 1856, with belongings, d/c instructions, and prescription script. Pt was transported via w/c to the ER exit.
== END 2021-03-27 18:56 | disposition home or self-care (01) | DRG 884 ==
LOC: SBH 14:30
PROVIDERS: Internal Medicine; Psychiatry & Neurology Psychiatry; ADMIT Psychiatry & Neurology Psychiatry; ATTEND Psychiatry & Neurology Psychiatry
DX: F01.51 Vascular dementia, unspecified severity, with behavioral disturbance (principal); Z68.41 Body mass index [BMI] 40.0-44.9, adult; K86.1 Other chronic pancreatitis; G30.9 Alzheimer's disease, unspecified; F29 Unspecified psychosis not due to a substance or known physiological condition; G89.29 Other chronic pain; M54.9 Dorsalgia, unspecified; E78.5 Hyperlipidemia, unspecified; F41.9 Anxiety disorder, unspecified; I10 Essential (primary) hypertension; I25.10 Atherosclerotic heart disease of native coronary artery without angina pectoris; F02.80 Dementia in other diseases classified elsewhere, unspecified severity, without behavioral disturbance, psychotic disturbance, mood disturbance, and anxiety; E66.9 Obesity, unspecified; E11.9 Type 2 diabetes mellitus without complications; E11.40 Type 2 diabetes mellitus with diabetic neuropathy, unspecified; K58.9 Irritable bowel syndrome, unspecified; Z20.822 Contact with and (suspected) exposure to COVID-19; Z86.711 Personal history of pulmonary embolism; Z87.440 Personal history of urinary (tract) infections; Z86.73 Personal history of transient ischemic attack (TIA), and cerebral infarction without residual deficits; Z79.899 Other long term (current) drug therapy; Z88.1 Allergy status to other antibiotic agents; Z88.0 Allergy status to penicillin; Z88.2 Allergy status to sulfonamides; Z91.048 Other nonmedicinal substance allergy status; Z82.61 Family history of arthritis; Z83.3 Family history of diabetes mellitus; Z83.79 Family history of other diseases of the digestive system; Z82.3 Family history of stroke; Z82.0 Family history of epilepsy and other diseases of the nervous system
CPT/HCPCS: 10880

== ENCOUNTER 2021-04-29 08:15 | Emergency (ER) | payer OTHER ==
[~2021-04-29] VITALS: Ht 149.9 cm; Wt 86.2 kg
[~2021-04-29 08:15] MED LIST changes: +ATORVASTATIN CA10 MG PO; +BRIMONIDINE TART5 ML OPHTHALMIC; +GLUCOTROL5 MG PO; +HYDROCODON-ACE1 EAC7 PO; +METFORMIN HCL500 MG PO; +NEURONTIN 300M300 M2 PO; +PANCREAZE DR 11 EAC2 PO; +PROTONIX 20 MG20 M1 PO; +RISPERDAL 1 MG T1 MG PO; +TRAZODONE HCL100 MG PO; +VICTOZA 3-0.6 MG/0.1 SUBQ
[2021-04-29 10:49] LABS: MCH 24.8 pg (26.0-34.0)
[2021-04-29 10:50] LABS: HEMATOCRIT 36.9 % (37.0-47.0); HEMOGLOBIN 11.6 gm/dL (12.0-15.0); MCHC 31.4 g/dL (28.0-37.0); RBC 4.66 mil/uL (4.20-5.00); RDW 17.1 % (10.5-14.5); WBC 10.2 thou/uL (4.0-11.0)
[2021-04-29 10:52] LABS: ANION GAP 8 mmol/L (7-16); BUN 8 mg/dL (7-18); CALCIUM 8.1 mg/dL (8.5-10.1); CHLORIDE 105 mmol/L (98-107); CO2 30 mmol/L (21-32); CREATININE 0.7 mg/dL (0.6-1.0); GLUCOSE 216 mg/dL (74-106); POTASSIUM 3.6 mmol/L (3.5-5.1); SODIUM 143 mmol/L (136-145)
[2021-04-29 11:04] LABS: ALBUMIN 2.9 g/dL (3.4-5.0); DIRECT BILIRUBIN < 0.1 mg/dL (<0.1-0.2); SGOT 21 U/L (15-37); SGPT 16 U/L (30-65); TOTAL BILIRUBIN 0.2 mg/dL (0.2-1.0); TOTAL PROTEIN 6.3 g/dL (6.4-8.2)
[2021-04-29 13:09] LABS: ABSOLUTE NEUTROPHILS 5.7 thou/uL (1.4-8.2); ANISOCYTOSIS 1+
[2021-04-29 13:10] LABS: PLATELET COUNT 395 thou/uL (150-400)
--- NOTE | 2021-04-29 13:47 | EKG ---
[place] [address] [place] [address] ELECTROCARDIOGRAM REPORT Name: PARTHSEAN [id number] Admission: 04/29/21 Attend Phys: Discharge: Date of : 46 Report #: [id number] [facility] ED Test Date: 2021-04-29 Test Time: 10:18:31 Pat Name: SEAN ALBA Department: Room: Gender: F E Business Specialist: CHANI : 1950 Requested By: Gem Huff Order Number: [id number] MD: Antelmo Garner Measurements Intervals [place] Rate: 83 P: 44 IN: 139 QRS: -34 QRSD: 86 T: 20 QT: 373 QTc: 439 Interpretive Statements Sinus rhythm Left anterior hemiblock Poor R wave progression Compared to ECG 03/21/2021 09:23:37 No significant change was found Electronically Signed On 04-29-2021 13:47:27 CDT by Antelmo Garner [email or web address] <ELECTRONICALLY SIGNED> By: Antelmo Garner MD, FACC 04/29/21 1347 1018 1018 Antelmo Garner MD, FACC /EPI
[2021-04-29 14:42] LABS: URINE BILIRUBIN NEGATIVE (Negative); URINE BLOOD NEGATIVE (Negative); URINE CLARITY CLEAR; URINE COLOR YELLOW; URINE GLUCOSE-RANDOM* NEGATIVE (Negative); URINE KETONES NEGATIVE (Negative); URINE LEUKOCYTES-REFLEX NEGATIVE (Negative); URINE NITRITE-REFLEX NEGATIVE (Negative); URINE PROTEIN (DIPSTICK) NEGATIVE (Negative); URINE SPECIFIC GRAVITY 1.015 (1.005-1.035)
[2021-04-29 14:50] LABS: SSA (PROTEIN CONFIRMATORY) NEGATIVE (Negative)
[2021-04-29 15:10] VITALS: BP 188/82
== END 2021-04-29 15:11 | disposition home or self-care (01) ==
LOC: ER 08:15
PROVIDERS: Emergency Medicine
DX: R42 Dizziness and giddiness (principal); R53.1 Weakness; R51.9 Headache, unspecified

== ENCOUNTER 2021-07-04 15:37 | Inpatient (IN) | payer OTHER ==
[~2021-07-04] VITALS: Ht 149.9 cm; Wt 96.6 kg
--- NOTE | ~2021-07-04 | EMS ---
[facility] [address] [place] [address] EMS Patient Care Report Name: SEAN ALBA Room #: REG SON[facility] Hearn#: [id number] Admission: 07/04/21 Attend Phys: Discharge: Date of : 46 Report #: [id number] THIS REPORT FOR: //name// Report Transmitted: 07/04/2021 14:59 EMS Care Summary [place], [place]/[facility] Incident [id number] @ 07/04/2021 15:00 Incident Location [address] [place] [id number] Patient SEAN ALBA Female, 70 Years 1950 Patient Address [address] [place] [id number] Patient History Asthma,Diabetes,Hypertension (HTN),Hyperlipidemia, Chief Complaint weakness Disposition Transported No Lights/Vonore Dispatch Reason Sick Person Transported To [facility] Narrative pt c/o general weakness today. she was at the yesterday and he changed many of her meds. she is alert and answers questions approp. she is able to stand and pivot but not ambulate like she normally does. pt BGL is 400 but she is not alarmed b/c she just ate a meal w/ sugar and her level runs high after that. 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 pt req eval at [facility], [facility]. pt to stair chair and to cot, transport w/o [facility] [address] [place] [address] EMS Patient Care Report Name: SEAN ALBA [facility] [id number] Admission: 07/04/21 Attend Phys: Discharge: Date of : 46 Report #: [id number] change. report to staff rm 5 Initial Vitals @15:24P: 100,R: 18,BP: 113/71,Pain: 6/10,GCS: 15,Glucose: 400,SpO2: 93,Revised Trauma: 12, Assessments @15:08MENTAL:No Abnormalities,SKIN:No Abnormalities,HEENT:Head/Face: No Abnormalities,LUNG SOUNDS:ABDOMEN:PELVIS//GI:EXTREMITIES:PULSE:Radial: 2+ Normal,NEURO: Impression Generalized Weakness Procedures @15:08 ALS Assessment Response: Unchanged @15:17 Stretcher Response: Unchanged @15:20 3-Lead ECG Response: Unchanged @15:12 Stairchair Response: Unchanged Timeline 14:57,Call Received 14:57,Dispatch Notified 15:00,Dispatched 15:00,En Route 15:06,On Scene 15:08,At Patient 15:08,ALS Assessment,Response: Unchanged 15:12,Stairchair,Response: Unchanged 15:17,Stretcher,Response: Unchanged 15:20,3-Lead ECG,Response: Unchanged 15:23,Depart Scene 15:24,BP: 113/71 M,PULSE: 100,RR: 18 R,SPO2: 93 Ox,ETCO2: ,B,PAIN: 6,GCS: 15, 15:30,At Destination 15:44,Call Closed Disclaimer v1.1 Copyright 2020 [employer] This EMS Care Summary contains data elements from the applicable legal record (which may be displayed differently). It is designed to provide pertinent information for the following purposes: continuity of care, clinical quality, and state data reporting. The complete legal record is available to ED staff and administrators of the receiving hospital in [employer] Patient Tracker. All data is provided "as is."
[2021-07-04 15:38] VITALS: BP 155/68
[2021-07-04 16:06] LABS: ABSOLUTE NEUTROPHILS 6.4 thou/uL (1.4-8.2); BASOPHILS 1.2 % (0.0-2.0); EOSINOPHILS 2.5 % (0.0-3.0); HEMATOCRIT 34.6 % (37.0-47.0); LYMPHOCYTES 19.6 % (24.0-44.0); MCHC 31.8 g/dL (28.0-37.0); MCV 78.4 fL (80.0-100.0); MONOCYTES 7.1 % (1.0-8.0); PLATELET COUNT 281 thou/uL (150-400); POLYS 69.6 % (36.0-66.0); RBC 4.41 mil/uL (4.20-5.00); RDW 17.1 % (10.5-14.5); WBC 9.1 thou/uL (4.0-11.0)
[2021-07-04 16:09] LABS: CALCIUM 8.7 mg/dL (8.5-10.1); CREATININE 1.1 mg/dL (0.6-1.0); POTASSIUM 3.4 mmol/L (3.5-5.1)
[2021-07-04 16:19] LABS: TOTAL BILIRUBIN 0.1 mg/dL (0.2-1.0); TOTAL PROTEIN 6.4 g/dL (6.4-8.2)
[2021-07-04 18:10] LABS: URINE BILIRUBIN NEGATIVE (Negative); URINE BLOOD NEGATIVE (Negative); URINE CLARITY CLOUDY; URINE COLOR YELLOW; URINE GLUCOSE-RANDOM* NEGATIVE (Negative); URINE KETONES NEGATIVE (Negative); URINE LEUKOCYTES-REFLEX NEGATIVE (Negative); URINE PROTEIN (DIPSTICK) NEGATIVE (Negative); URINE SPECIFIC GRAVITY 1.025 (1.005-1.035); URINE UROBILINOGEN 0.2 E.U./dl (0.2-1.0)
[2021-07-04 18:13] LABS: URINE NITRITE-REFLEX POSITIVE (Negative)
[2021-07-04 18:18] LABS: AMP/METHAMP Negative (Negative); BARBITURATES Negative (Negative); BENZODIAZEPINES POSITIVE (Negative); COCAINE Negative (Negative); METHADONE Negative (Negative); OPIATES POSITIVE (Negative); PCP Negative (Negative)
[2021-07-04] MEDS ORDERED: NORCO7.5 PO (18:55)
[2021-07-04] MEDS ORDERED: BUSPIRONE HCL15 MG PO (18:55)
[2021-07-04] MEDS ORDERED: ARTHRITIS PAIN100 GM TOP (18:55)
[2021-07-04] MEDS ORDERED: FUROSEMIDE 20 M20 M1 PO (18:55)
[2021-07-04] MEDS ORDERED: BELSOMRA5 MG PO (18:55)
[2021-07-04] MEDS ORDERED: OMEPRAZOLE40 MG PO (18:55)
[2021-07-04] MEDS ORDERED: DONEPEZIL HCL 55 M1 PO (18:56)
[2021-07-04] MEDS ORDERED: METFORMIN HCL500 MG PO (18:56)
[2021-07-04] MEDS ORDERED: PRINIVIL20 MG PO (18:56)
[2021-07-04 22:40] LABS: FOLIC ACID 14.4 ng/mL (8.6-58.9)
[2021-07-04 22:44] VITALS: BP 127/77
[2021-07-05] MEDS ORDERED: CLONIDINE HCL0.3 M3 PO (00:49)
[2021-07-05 02:38] VITALS: BP 163/72
--- NOTE | 2021-07-05 03:00 | NUR ---
Pt. arrived to the unit from the emergency room accompanied by staff. She is alert and oriented times three. Admission assessment completed. VSS. Bed alarm is on.
[2021-07-05 03:18] VITALS: BP 143/62
[2021-07-05 04:03] VITALS: BP 152/83
[2021-07-05 07:50] VITALS: BP 157/83
[2021-07-05 10:47] LABS: HEMATOCRIT 35.2 % (37.0-47.0); HEMOGLOBIN 10.8 gm/dL (12.0-15.0); MCH 24.2 pg (26.0-34.0); MCHC 30.7 g/dL (28.0-37.0); MCV 78.9 fL (80.0-100.0); RBC 4.46 mil/uL (4.20-5.00); RDW 16.8 % (10.5-14.5); WBC 12.5 thou/uL (4.0-11.0)
[2021-07-05 10:57] LABS: CALCIUM 8.4 mg/dL (8.5-10.1); CREATININE 0.9 mg/dL (0.6-1.0); MAGNESIUM 1.7 mg/dL (1.8-2.4); POTASSIUM 3.2 mmol/L (3.5-5.1)
--- NOTE | 2021-07-05 11:14 | NUR ---
Triggered for high BMI. Pt admitted with UTI, some AMS r/t acute metabolic encephalopathy, with hx CVA and poorly controlled DMII. Currently 7# (3.5%) below UBW 220 lb. She does not report any changes in appeitet or sig wt changes recently. No intakes this admit, but good intakes noted on past admissions and pt reports good appetite. [facility] Pt with good understanding of DM diet and declines any nutrition education r/t DM or weight loss strategies at this time. Low nutrition risk.
--- NOTE | 2021-07-05 11:22 | NUR ---
PT ADMITTED RELATED TO UTI. CM REVIEWED CHART AND SPOKE WITH CARE TEAM. CM MET WITH PT AT BEDSIDE THIS DAY. PT APPEARED TO BE ALERT TO SELF. SHE CONFIRMED THAT SHE RESIDES IN AN APARTMENT WITH HER DTR WALESKA AND THAT THERE MAY BE 7 STEPS TO ENTER. PT INDICATED SHE HAS A CANE AND A FWW FOR USE AT HOME. PT INDICATED HER DTR WALESKA IS A GOOD CAONTACT FOR HER. PT INDICATED SHE PLANS TO RETURN HOME ONCE MEDICALLY STABLE. CM INDICATED THAT CM WOULD CALL W[facility]ESKA AND INTRODUCED SELF. CM CALLED AND SPOKE WITH WALESKA SHE CONFIRMED THAT ABOVE. SHE INDICATED THAT THEY HAD USED [facility] IN THE PAST AND THAT THEY WOULD PREFER [facility] IF THEY CAN ACCEPT PT. DTR INDICATED THAT SHE WANTED TO SEE IF PT COULD COMPLETE A MEDICAL DPOA DOCUMENT. CM TO ASK PT AND REACH OUT TO MAXIMILIANO TEAM. CM TO COMPLETE REFERRAL FOR MEDICAID HCBS SERVICES. CM CALLED [facility] AND THEY ARE AGREEABLE TO REVIEW REFERRAL. CM FAXED. CARE TEAM INDICATED POSSIBLE DC HOME TOMORROW. CM NOTIFIED PT AND DTR THEY ARE AGREEABLE. CM FOLLOWING REGARDING DC PLANNING.
[2021-07-05] MEDS ORDERED: PROAIR HFA8.5 GM INH (13:16)
[2021-07-05] MEDS ORDERED: OXYCODONE HCL10 MG PO (13:18)
[2021-07-05] MEDS ORDERED: DESYREL150 MG PO (13:19)
[2021-07-05] MEDS ORDERED: FOSAMAX 70 MG T70 MG PO (13:20)
[2021-07-05] MEDS ORDERED: TIZANIDINE HCL 22 M1 PO (13:20)
[2021-07-05 16:22] VITALS: BP 150/77
--- NOTE | 2021-07-05 17:11 | NUR ---
RN ASSUMED PT'S CARE AT 0700AM, PT IS A&OX4 , PT IS ON ROOM AIR , PT'S VS ARE STABLE, PT IS WORKING WITH PT/OT TODAY, PT'S WEAKNESS HAS IMPROVED, RN HAS CALLED HOSPITAL DR TO REPORT ABNORMAL LAB RESULTS, NEW ORDER RECEIVED.
[2021-07-05 19:30] VITALS: BP 125/65
[2021-07-06 00:21] VITALS: BP 131/76
[2021-07-06 04:57] VITALS: BP 149/79
--- NOTE | 2021-07-06 04:59 | NUR ---
Pt. rested quietly at intervals during the night when checked on during frequent rounds. She c/o a headache and po tylenol given (see emar) with relief noted. Ambulated to the bathroom with walker and assistance of one. Bed alarm is on.
[2021-07-06 08:01] VITALS: BP 17/87
[2021-07-06 11:00] VITALS: BP 178/87
[2021-07-06 12:00] VITALS: BP 175/93
--- NOTE | 2021-07-06 13:36 | NUR ---
CARE TEAM INDICATED THAT PT IS MEDICALLY STABLE TO DISCHAGE HOME THIS DAY. CM SPOKE WITH PT AND PT'S DTR WALESKA AND INDICATED THAT [facility] IS ABLE TO ACCEPT PT UPON DC. CM INDICATED THAT CM HAD SUBMITTED AN ONLINE REFERRAL FOR HCBS. A MEDICAL DPOA WAS ALSO COMPLETED. PT'S DTR IS TO PROVIDE TRANSPORT HOME THIS DAY. PT HAS ALL NEEDED DME. NO OTHER CM INTERVENTION INDICATED CASE CLOSED.
== END 2021-07-06 16:15 | disposition home health service (06) | DRG 689 ==
LOC: ER 15:37 → 4W 20:52 → EROBS 20:52 → 4W 07-05 02:52
PROVIDERS: Nurse Practitioner Family; Physician Assistant; ADMIT Internal Medicine; ATTEND Internal Medicine
DX: N39.0 Urinary tract infection, site not specified (principal); G92.8 Other toxic encephalopathy; M54.9 Dorsalgia, unspecified; Z20.822 Contact with and (suspected) exposure to COVID-19; I10 Essential (primary) hypertension; I25.10 Atherosclerotic heart disease of native coronary artery without angina pectoris; M81.0 Age-related osteoporosis without current pathological fracture; F41.9 Anxiety disorder, unspecified; G89.29 Other chronic pain; E11.42 Type 2 diabetes mellitus with diabetic polyneuropathy; R53.81 Other malaise; F03.90 Unspecified dementia, unspecified severity, without behavioral disturbance, psychotic disturbance, mood disturbance, and anxiety; T50.905A Adverse effect of unspecified drugs, medicaments and biological substances, initial encounter; Z86.16 Personal history of COVID-19; Z86.73 Personal history of transient ischemic attack (TIA), and cerebral infarction without residual deficits; Z86.711 Personal history of pulmonary embolism; Z88.1 Allergy status to other antibiotic agents; Z88.0 Allergy status to penicillin; Z88.2 Allergy status to sulfonamides; Z88.8 Allergy status to other drugs, medicaments and biological substances; Z83.3 Family history of diabetes mellitus; Z82.49 Family history of ischemic heart disease and other diseases of the circulatory system; Z87.891 Personal history of nicotine dependence
CPT/HCPCS: 10045

== ENCOUNTER 2021-08-02 11:18 | Inpatient (IN) | payer OTHER ==
[~2021-08-02] VITALS: Ht 149.9 cm; Wt 95.3 kg
--- NOTE | ~2021-08-02 | EMS ---
[facility] [address] [place] [address] EMS Patient Care Report Name: SEAN ALBA Room #: REG SONYA Hearn#: [id number] Admission: 08/02/21 Attend Phys: Discharge: Date of : 46 Report #: [id number] THIS REPORT FOR: //name// Report Transmitted: 08/02/2021 12:06 EMS Care Summary [place], [place]/[facility] Incident [id number] @ 08/02/2021 10:41 Incident Location [address] [place] [id number] Patient SEAN ALBA Female, 70 Years 1950 Patient Address [address] [place] [id number] Patient History Dementia,Hypertension (HTN),Urinary Tract Infection (UTI),Hyperglycemia, Patient Allergies Sulfa,Azithromycin, Patient Medications Omeprazole, Oxycodone, Donepezil, Duloxetine, [place], Gabapentin, Metformin, Carvedilol, Clopidogrel, Chief Complaint Weakness and Lethargy Disposition Transported No Lights/[place] Dis[place] Reason Sick Person Transported To [facility] Narrative M36 dispatched for a 70 year old female conscious and breathing sick person. [facility] [address] [place] [address] EMS Patient Care Report Name: SEAN ALBA Room #: CLARKE Hearn#: [id number] Admission: 08/02/21 Attend Phys: Discharge: Date of : 46 Report #: [id number] M36 responds to the scene and finds the patient sitting down on a stool in the bathroom being supported up by family member. Patient acknowledges EMS presence is GCS 15, AAOx4. Patient has a patent airway is breathing adequately with strong regular radial pulses. Skin is noted to be pale and cool. Patient is noted to be lethargic and weak. Family advises that the patient last known well was 2 hours ago and that the patient is more lethargic than normal. EMS recognizes a change in the condition of the patients mental status where she becomes unresponsive briefly. Patient is moved to the floor and placed in the supine position. Dispatch is informed to send a fire apparatus to assist M36 emergent. Patient is placed on the monitor to obtain VS and 12 lead ECG. Patient is responsive to verbal stimulation and is able to answer all questions appropriately. 12 lead ECG is unremarkable and patient is noted to be Hyperglycemic and hypotensive. Arrival of P41 personnel. Patient is moved from the floor to the stretcher via a xiang snow remover and assistance from P41 personnel. Patient is placed on the stretcher in the fowlers position and secured using seatbelts and rails. Patient is moved to the ambulance and transport is initiated to [facility]. Assessment is conducted. Patient is GCS 15 and orientedX4. Patient has a patent airway is breathing adequately with strong regular radial pulses. Skin is pale cool and dry. HEENT are WNL. Pupils are PERRL. Trachea is midline with no JVD noted. Chest wall is stable and intact with symmetrical rise and fall. Lung sounds are clear and equal. Abdomen is soft and nontender with no distention or rigidity noted. Pelvis is stable and intact. Stroke scale conducted is negative. Patient is noted to be incontinent. Arrival at the receiving facility patient condition is stable and unchanged. Patient is offloaded and taken to ED room 8. RN is given report and signatures are obtained. Patient is unable to sign due to weakness. Transfer of care is completed and M36 returns to [facility]. Initial Vitals @10:58P: 87,NM Suspected: false @10:55P: 64,Pain: 0/10,GCS: 15,SpO2: 92,NM Suspected: false @10:57P: 90,R: 18,BP: 94/70,Pain: 0/10,GCS: 15,SpO2: 76,Revised Trauma: 12,NM Suspected: false @11:06P: 87,R: 20,BP: 103/70,Pain: 0/10,GCS: 15,SpO2: 94,Revised Trauma: 12,NM Suspected: false Assessments @10:53MENTAL:Confused,Place Oriented,Event Oriented,Time Oriented,Person Oriented,SKIN:Pale,Cold,HEENT:Head/Face: No Abnormalities,LUNG SOUNDS:General: No Abnormalities,Left Upper: No Abnormalities,Right Upper: No Abnormalities,Left Lower: No Abnormalities,Right Lower: No [address] [address] EMS Patient Care Report Name: SEAN ALBA Christina Room #: REG SONYA Hearn#: [id number] Admission: 08/02/21 Attend Phys: Discharge: Date of : 46 Report #: [id number] Abnormalities,ABDOMEN:General: No Abnormalities,Left Upper: No Abnormalities,Right Upper: No Abnormalities,Left Lower: No Abnormalities,Right Lower: No Abnormalities,PELVIS//GI:Incontinence,EXTREMITIES:Left Arm: No Abnormalities,Right Arm: No Abnormalities,Left Leg: No Abnormalities,Right Leg: No Abnormalities,PULSE:Radial: 2+ Normal,NEURO:Other, Impression Diabetic Hyperglycemia Procedures @10:58 12-Lead ECG Response: UnchangedSucceeded @10:53 ALS Assessment Response: UnchangedSucceeded @10:54 3-Lead ECG Response: UnchangedSucceeded Timeline 10:40,Call Received 10:40,Dispatch Notified 10:41,Dispatched 10:41,En Route 10:49,On Scene 10:52,At Patient 10:53,ALS Assessment,Response: UnchangedSucceeded, 10:54,3-Lead ECG,Response: UnchangedSucceeded, 10:55,BP: / M,PULSE: 64,RR: R,SPO2: 92 Ox,ETCO2: ,BG: ,PAIN: 0,GCS: 15, 10:57,BP: 94/70 M,PULSE: 90,RR: 18 R,SPO2: 76 Ox,ETCO2: ,BG: ,PAIN: 0,GCS: 15, 10:58,12-Lead ECG,Response: UnchangedSucceeded, 10:58,BP: / M,PULSE: 87,RR: R,SPO2: Ox,ETCO2: ,BG: ,PAIN: ,GCS: , 11:06,BP: 103/70 M,PULSE: 87,RR: 20 R,SPO2: 94 Ox,ETCO2: ,BG: ,PAIN: 0,GCS: 15, 11:07,Depart Scene 11:15,At Destination 11:30,Call Closed Disclaimer v1.1 Copyright 2021 [employer] This EMS Care Summary contains data elements from the applicable legal record (which may be displayed differently). It is designed to provide pertinent information for the following purposes: continuity of care, clinical quality, and state data reporting. The complete legal record is available to ED staff and administrators of the receiving hospital in [employer] Patient Tracker. All data is provided "as is."
[~2021-08-02 11:18] MED LIST changes: +ARTHRITIS PAIN100 GM TOP; +BELSOMRA5 MG PO; +BUSPIRONE HCL15 MG PO; +CLONIDINE HCL0.3 M3 PO; +DONEPEZIL HCL 55 M1 PO; +FUROSEMIDE 20 M20 M1 PO; +NORCO7.5 PO; +OXYCODONE HCL10 MG PO; +PRINIVIL20 MG PO; +PROAIR HFA8.5 GM INH; +TIZANIDINE HCL 22 M1 PO
[2021-08-02 11:19] VITALS: BP 100/53
[2021-08-02 11:42] LABS: ABSOLUTE NEUTROPHILS 4.3 thou/uL (1.4-8.2); EOSINOPHILS 2.8 % (0.0-3.0); HEMATOCRIT 34.1 % (37.0-47.0); HEMOGLOBIN 10.8 gm/dL (12.0-15.0); LYMPHOCYTES 36.7 % (24.0-44.0); MCHC 31.7 g/dL (28.0-37.0); MCV 78.7 fL (80.0-100.0); MONOCYTES 8.9 % (1.0-8.0); PLATELET COUNT 280 thou/uL (150-400); POLYS 50.6 % (36.0-66.0); RBC 4.34 mil/uL (4.20-5.00); RDW 18.2 % (10.5-14.5); WBC 8.5 thou/uL (4.0-11.0)
[2021-08-02 11:49] LABS: CALCIUM 8.3 mg/dL (8.5-10.1); CREATININE 2.2 mg/dL (0.6-1.0); POTASSIUM 3.4 mmol/L (3.5-5.1)
[2021-08-02 11:57] LABS: TOTAL BILIRUBIN 0.2 mg/dL (0.2-1.0); TOTAL PROTEIN 6.3 g/dL (6.4-8.2)
[2021-08-02 14:08] LABS: AMP/METHAMP Negative (Negative); BARBITURATES Negative (Negative); BENZODIAZEPINES POSITIVE (Negative); COCAINE Negative (Negative); METHADONE Negative (Negative); OPIATES POSITIVE (Negative); PCP Negative (Negative)
--- NOTE | 2021-08-02 15:40 | EKG ---
[address] [address] ELECTROCARDIOGRAM REPORT Name: PARTHSEAN Room #: 170-10 ADM IN M.R.#: [id number] Admission: 08/02/21 Attend Phys: Shamar Hawkins MD Discharge: Date of : 46 Report #: [id number] [facility] ED Test Date: 2021-08-02 Test Time: 11:27:59 Pat Name: SEAN ALBA Department: Room: 170 10 Gender: F Jig Grinder Set Up Operator: 0 : 1950 Requested By: Cruzito Watkins Order Number: [id number] MD: Sj Lala Measurements Intervals [place] Rate: 83 P: 17 AK: 175 QRS: -39 QRSD: 87 T: -58 QT: 438 QTc: 515 Interpretive Statements Sinus rhythm Compared to ECG 04/29/2021 10:18:31 Poor R-wave progression no longer present Electronically Signed On 08-02-2021 15:39:38 LEVER TENDER by Sj Lala [email or web address] <ELECTRONICALLY SIGNED> By: Sj Lala MD, [facility] 08/02/21 1539 26 26 Sj Lala MD, FACC /EPI
[2021-08-02 17:01] VITALS: BP 106/57
[2021-08-02 21:16] VITALS: BP 142/74
--- NOTE | 2021-08-02 22:11 | NUR ---
PT WOULD LIKE HER CONTACT PEOPLE TO BE DTR WALESKA ALBA ([phone]) AND SON NIGEL ALBA ([phone]). DTJill GALEANO UPDATED ON PT POC.
--- NOTE | 2021-08-03 05:58 | NUR ---
PT'S DTR WALESKA CALLED ER FOR UPDATE ON HER MOTHER. WALESKA STATED SHE IS CONCERNED ABOUT HER MOTHER STAYING IN THE HOSPITAL AND BEING EXPOSED TO MORE COVID. WALESKA WOULD LIKE TO TALK TO THE HOSPITALIST TODAY ABOUT POSSIBLY DISCHARGING HER MOTHER TODAY. DISCUSSED POC WITH DTR WALESKA. WILL UPDATE ONCOMING DAY SHIFT RN ON DTR'S CONCERNS.
--- NOTE | 2021-08-03 06:13 | NUR ---
PT STILL IN ER, WAITING FOR INPATIENT BED. NO SIGNIFICANT CHANGES DURING THE NIGHT. VSS. AFEBRILE. NO SOA NOTED. PT REMAINS IN COVID ISOLATION.
[2021-08-03 08:54] VITALS: BP 160/80
[2021-08-03 14:25] VITALS: BP 160/80
--- NOTE | 2021-08-03 14:25 | NUR ---
PT ADMITTED RELATED TO HYPOTENSION, RENAL FAILURE. CM REVIEWED CHART AND SPOKE WITH CARE TEAM. PT IS FAMILIAR TO CM FROM PREVIOUS ADMISSION DC 07/06. CM CALLED AND SPOKE WITH PT'S DTR/DEREK GALEANO . SHE INDICATED PT PT AND SHE HAD BEEN LIVING IN AN APARTMENT WITH 7 STEPS TO ENTER. 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 SHE INDICATED THAT SHE WAS AWARE THAT PT HAD TESTED POSITIVE FOR COVID UPON THIS ADMISSION. PT WITH HX OF COVID IN SEPTEMBER 2020. PT IS ON RA. CARE TEAM HAD INDICATED THAT PT COULD POTENTIALLY BE MEDICALLY STABLE TO DC HOME THIS DAY WITH HH SERVICES. PT'S DTR IS AWARE AND AGREEABLE. PT HAD BEEN DISCHARGED WITH [facility] IN PLACE LAST ADMISSION BUT [facility] REPORTED THEY HADN'T BEEN ABLE TO INITIATE SERVICES WITH PT. THEY INDICATED THEY COULD ACCEPT AGAIN IF NEEDED. DTR AND PT AGREEABLE TO [facility] HH UPON DC. CM FAXED REFERRAL AND WILL SEND ORDERS. AWAITING REPEAT LABS. CM FOLLOWING.
[2021-08-03 15:06] LABS: ABSOLUTE NEUTROPHILS 4.7 thou/uL (1.4-8.2); BASOPHILS 0.6 % (0.0-2.0); EOSINOPHILS 3.4 % (0.0-3.0); HEMATOCRIT 35.2 % (37.0-47.0); LYMPHOCYTES 26.5 % (24.0-44.0); MCH 24.6 pg (26.0-34.0); MCHC 31.3 g/dL (28.0-37.0); MCV 78.7 fL (80.0-100.0); MONOCYTES 6.2 % (1.0-8.0); PLATELET COUNT 246 thou/uL (150-400); POLYS 63.3 % (36.0-66.0); RBC 4.47 mil/uL (4.20-5.00); RDW 17.6 % (10.5-14.5); WBC 7.4 thou/uL (4.0-11.0)
[2021-08-03 15:22] LABS: CALCIUM 8.2 mg/dL (8.5-10.1); MAGNESIUM 1.9 mg/dL (1.8-2.4); POTASSIUM 4.1 mmol/L (3.5-5.1)
[2021-08-03 17:05] VITALS: BP 166/82
== END 2021-08-03 17:06 | disposition home health service (06) | DRG 682 ==
LOC: ER 11:18 → EROBS 13:28
PROVIDERS: Emergency Medicine; Nurse Practitioner; ADMIT Hospitalist; ATTEND Hospitalist
DX: N17.9 Acute kidney failure, unspecified (principal); G92.8 Other toxic encephalopathy; I10 Essential (primary) hypertension; I25.10 Atherosclerotic heart disease of native coronary artery without angina pectoris; G89.29 Other chronic pain; M54.9 Dorsalgia, unspecified; I95.9 Hypotension, unspecified; E11.42 Type 2 diabetes mellitus with diabetic polyneuropathy; F32.9 Major depressive disorder, single episode, unspecified; F03.90 Unspecified dementia, unspecified severity, without behavioral disturbance, psychotic disturbance, mood disturbance, and anxiety; Z96.659 Presence of unspecified artificial knee joint; M81.0 Age-related osteoporosis without current pathological fracture; E11.65 Type 2 diabetes mellitus with hyperglycemia; F41.9 Anxiety disorder, unspecified; Z20.822 Contact with and (suspected) exposure to COVID-19; Z86.73 Personal history of transient ischemic attack (TIA), and cerebral infarction without residual deficits; Z90.49 Acquired absence of other specified parts of digestive tract; Z98.84 Bariatric surgery status; Z88.1 Allergy status to other antibiotic agents; Z88.0 Allergy status to penicillin; Z88.2 Allergy status to sulfonamides; Z88.8 Allergy status to other drugs, medicaments and biological substances; Z86.711 Personal history of pulmonary embolism